=== PATIENT | female | born 1935 | race Caucasian/White ===

== ENCOUNTER → 2019-07-15 08:20 | Outpatient (REF) | payer MEDICARE, BC, SELFPAY | LOC: ANHLAB 08:20 | PROVIDERS: PCP Physician Assistant; Visit Provider Nurse Practitioner Family | DX: C44.319 Basal cell carcinoma of skin of other parts of face (principal) | CPT/HCPCS: 88305; 88331 ==

== ENCOUNTER 2020-08-15 09:42 | Emergency (ER) | payer MEDICARE, BC, SELFPAY ==
--- NOTE | ~2020-08-15 | XR_ITS ---
EXAMINATION: XR hand LT min 3V DATE: 08/15/2020 12:13 INDICATION: Left hand pain post fall TECHNIQUE: Posteroanterior, oblique and lateral views of the left hand were obtained. COMPARISON: None. FINDINGS: Diffuse osteopenia. Alignment is normal. No fracture. Mild to moderate polyarticular osteoarthritis w ith typical distribution most prominent at the radial aspect of the carpus and at multiple interphala ngeal joints with distal predominance. Lucencies with thin sclerotic margins at the tip of the ulnar styloid process, at the dorsal base of the first metacarpal and at the proximal pole of the scaphoid most likely representing degenerative cystic change with differential including chronic erosions. Mil d soft tissue swelling over the dorsal aspect of the heads of the metacarpals. IMPRESSION: 1. 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 No acute osseous abnormality. Reviewed, dictated and finalized at location B. STRIAL ECOLOGIST IMPRESSION: 1. 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 No acute oss eous abnormality.
--- NOTE | ~2020-08-15 | XR_ITS ---
EXAMINATION: XR hand RT min 3V EXAM DATE: 08/15/2020 12:14 INDICATION: Initial encounter following injury, with pain of the right hand. TECHNIQUE: Right hand frontal, lateral and oblique projections obtained and reviewed. There is no pr ior study for comparison. FINDINGS: Right metacarpal bones are unremarkable. There is mild to moderate polyarticular primary o steoarthritis. There are no acute fractures or dislocations identified. There is no subcutaneous gas . There is soft tissue swelling over the wrist dorsally. There are no radiopaque foreign bodies. IMPRESSION: 1. XR hand RT min 3V exam without acute osseous findings. 2. Soft tissue swelling. Reviewed, dictated and finalized at location A. LINING MACHINE OPERATOR
--- NOTE | ~2020-08-15 | CT_ITS ---
EXAMINATION: CT brain wo con, CT facial bones wo con EXAM DATE: 08/15/2020 12:17 INDICATION: Head injury. Fall, left facial pain. TECHNIQUE: Spiral CT of the head was performed without contrast. Axial, coronal and sagittal images were reviewed. Spiral CT of the facial bones was performed without contrast. Axial images were revie wed. Coronal and sagittal reformatted images were also reviewed. The dose-length product (DLP) for this examination was 529.67 (accession [id number]), 259.83 (accession [id number]) mGy-cm. Th e exposure was tailored according to patient size, and iterative reconstruction (ASIR) was used as ad ditional dose reduction technique. Comparison is made to prior examination from 01/16/2017. FINDINGS: HEAD CT: There is no acute intraparenchymal hemorrhage. No evidence of intraparenchymal brain mass lesion. No evidence of acute infarction. There is mild microangiopathy and moderate cerebral atroph y. There is no mass effect or midline shift. There is no obstructive hydrocephalus suspected. There are no extra-axial collections. There are no calvarial acute fractures. FACIAL CT: There are no displaced acute nasal bone fractures. The mandible, sinuses and orbits are i ntact. The orbits, globes and extraocular muscles are unremarkable. There is left periorbital swe lling, laceration. The visualized sinuses and mastoid air cells are well aerated. Advanced upper cer vical arthropathy. Left frontal bone island. IMPRESSION: 1. No acute intracranial findings. 2. No acute facial fracture. 3. Left periorbital laceration, swelling. Reviewed, dictated and finalized at location A. HEN FOOD ASSEMBLER IMPRESSION: 1. No acute intracranial findings. 2. No acute facial fracture. 3. Left periorbital laceration, swelling.
--- NOTE | ~2020-08-15 | XR_ITS ---
EXAMINATION: [id number]_[id number] DATE: 08/15/2020 12:14 INDICATION: Left rib pain post fall TECHNIQUE: PA view of the chest and 3 views of the left ribs were obtained. COMPARISON: None FINDINGS: No rib fractures identified. Linear opacity at the junction of the left mid to lower lung zone and mi ld streaky opacities at the bilateral lung bases with appearance favoring atelectasis over pneumonia. No pulmonary edema, pleural effusion or pneumothorax. Heart size is normal. Mild thoracolumbar dextr oscoliosis. Moderate thoracic and moderate to severe lumbar and lower cervical spondylosis. IMPRESSION: 1. No rib fractures identified. 2. Mild atelectasis versus less likely pneumonia at the bilateral lower lung zones. Reviewed, dictated and finalized at location B. INSPECTOR AND CENTER MARKER IMPRESSION: 1. No rib fractures identified. 2. Mild atelectasis versus less likely pneumonia at the bilateral lower lung zo karla.
[2020-08-15 10:09] VITALS: BP 143/71; PULSE 54; RESP 18; TEMP 36.3; O2SAT 99
--- NOTE | 2020-08-15 11:26 | ECG_ITS ---
Measurements Intervals [place] Rate: 45 P: 33 ME: 131 QRS: -10 QRSD: 97 T: 31 QT: 449 QTc: 390 Interpretive Statements SINUS BRADYCARDIA VOLTAGE CRITERIA FOR LVH ABNORMAL ECG Electronically Signed On 08-15-2020 13:02:20 [employer] by Jeff Nova D.O.
--- NOTE | 2020-08-15 11:38 | ED.HEATRA ---
HPI - Head Injury General Chief complaint: Head Injury Stated complaint: fall, left eyebrow laceration Time Seen by Provider: 08/15/20 11:18 Source: patient Mode of arrival: ambulatory Limitations: no limitations History of Present Illness HPI Narrative: This is an 84 year old female with history of hypertension who presents for evaluation of a head injury. She states she was in [place] when she tripped while taking out the trash. She fell and hit her head on concrete. She denies LOC. She does have a laceration over her left eye brow. She denies dizziness, headache, nausea, vomiting, or blurred vision. She is not on chronic anticoagulation but she took 2 aspirin after she fell. She denies neck pain or extremit She does note abrasion to her left hand and left knee. She states she has been able to ambulate without difficulty. She denies rib pain. . Related Data Home Medications Medication Instructions Recorded Confirmed hydrochlorothiazide 12.5 mg tablet 12.5 mg PO tablet 07/15/19 losartan 50 mg tablet 50 mg PO tablet 07/15/19 Allergies Allergy/AdvReac Type Severity Reaction Status Date / Time No Known Drug Allergies Allergy Verified 08/15/20 11:31 Review of Systems Review of Systems: All systems reviewed & are unremarkable except as noted in HPI and below PMFSH Past Medical History Medical History Hypertension Family History Family History Other Acute myocardial infarction Cerebrovascular accident Family history of malignant neoplasm Social History Social History Gender identity (if verbalized by the patient): Female Exam Const: General: no acute distress and alert Orientation/consciousness: patient oriented x3 HENMT: Ears: TM's normal bilaterally Other: left forehead superficial 2 cm laceration with surround abrasion. Eyes: Conjunctivae: conjunctivae normal Pupils: Equal, round and reactive pupils present EOM: EOMs intact bilaterally Other: left periorbital ecchymosis Chest: Chest palpation & inspection: normal inspection of the chest Resp: Effort & Inspection: normal respiratory effort and no retractions Auscultation: clear to auscultation bilaterally Cardio: Rate: regular rate Rhythm: regular rhythm Heart sounds: no murmurs GI: GI Palp: Yes Soft to palpation, No Tenderness to palpation present (GI) and No Guarding due to palpation present (GI) Auscultation: normal bowel sounds Skin: Other: abrasion to left anterior knee, no swelling or deformity, Neuro: General: patient oriented x3 and moves all extremities Cranial nerves: Yes CN's II-XII intact bilaterally Psych: Mental Status: mental status grossly normal Affect: normal affect Course Reevaluation(s) Reevaluation #1: I discussed with patient that no acute injury were found. She denies any questions or concernes. Date: 08/15/20 Time: 13:40 Vital Signs Vital signs: Vital Signs Temperature 97.4 F L 08/15/20 10:09 Pulse Rate 54 L 08/15/20 10:09 Respiratory Rate 18 08/15/20 10:09 Blood Pressure 143/71 H 08/15/20 10:09 Pulse Oximetry 99 08/15/20 10:09 Temperature 97.4 F L 08/15/20 10:09 Pulse Rate 56 L 08/15/20 13:55 Respiratory Rate 18 08/15/20 13:55 Blood Pressure 191/63 H 08/15/20 13:55 Pulse Oximetry 99 08/15/20 13:55 Procedures Laceration Laceration 1: Date: 08/15/20 Time: 13:39 Site: face Side (If applicable): left (forehead) Size (cm): 2 Depth: simple, single layer Local Anesthetic: lidocaine 1% Amount of anesthesia used (mL): 2 Pre-repair: wound explored ====== Skin Level ====== Skin layer closed with: other (fast absorbing gut) Size (cm): 5-0 Number of sutures: 5 Technique: simple, interrupted =
[2020-08-15] MEDS: TETANUS,DIPHTHERIA,AC PERTUSSIS ADULT (0.5 ML) BOOSTRIX IM (12:27)
[2020-08-15] MEDS: ACETAMINOPHEN 500 MG TABLET 1000 MG PO (13:10)
[2020-08-15 13:55] VITALS: BP 191/63; PULSE 56; RESP 18; O2SAT 99
== END 2020-08-15 13:55 | disposition home or self-care (01) ==
PROVIDERS: Emergency Provider General Practice; PCP Physician Assistant
DX: S01.81XA Laceration without foreign body of other part of head, initial encounter (principal); S60.419A Abrasion of unspecified finger, initial encounter; S80.212A Abrasion, left knee, initial encounter; S09.90XA Unspecified injury of head, initial encounter; R00.1 Bradycardia, unspecified; I10 Essential (primary) hypertension; Z23 Encounter for immunization; R94.31 Abnormal electrocardiogram [ECG] [EKG]; M19.042 Primary osteoarthritis, left hand; R91.8 Other nonspecific abnormal finding of lung field; W01.0XXA Fall on same level from slipping, tripping and stumbling without subsequent striking against object, initial encounter
CPT/HCPCS: 12011; 70450; 70486; 71101; 73130; 90471; 90715; 93005; 99284; A9270

== ENCOUNTER 2023-03-06 12:20 | Emergency (ER) | payer MEDICARE, BC, SELFPAY ==
[2023-03-06] VITALS (7 sets, daily range): BP systolic 186–219; BP diastolic 52–68; PULSE 54–65; RESP 14–18; TEMP 36.4–36.8; O2SAT 96–100
--- NOTE | ~2023-03-06 | US_ITS ---
EXAMINATION: US venous doppler UE RT DATE: 03/06/2023 14:37 INDICATION: Right upper extremity pain and swelling TECHNIQUE: Grayscale ultrasound images without and with compression and Doppler ultrasound images of the right upper extremity veins were obtained. COMPARISON: None. FINDINGS: The right internal jugular vein, subclavian vein, axillary vein, brachial veins, basilic vein, cephal ic vein, radial vein, and ulnar vein are patent. IMPRESSION: 1. No evidence of deep venous thrombosis. Reviewed, dictated and finalized at location B.
--- NOTE | ~2023-03-06 | XR_ITS ---
EXAMINATION: XR wrist RT 2V, XR hand RT min 3V DATE: 03/06/2023 14:31 INDICATION: Right hand and wrist swelling and pain TECHNIQUE: 1. Posteroanterior and lateral views of the right wrist were obtained. 2. Dorsal palmar, oblique and lateral views of the right hand were obtained. COMPARISON: Right hand radiographs dated 08/15/2020 FINDINGS: Alignment of the right hand and wrist is normal. No fracture identified. Polyarticular osteoarthriti s, moderate severity at the right first carpometacarpal, first interphalangeal and second, fourth and fifth distal interphalangeal joints and mild at the wrist, triscaphe, first second fourth metacarpop halangeal and remaining interphalangeal joints. Mild soft tissue swelling at the base of the thumb an d volar aspect of the wrist and carpus. IMPRESSION: 1. Unchanged mild to moderate polyarticular osteoarthritis at the right hand and wrist. No acute osse ous abnormality. Reviewed, dictated and finalized at location A. IMPRESSION: 1. Unchanged mild to moderate polyarticular osteoarthritis at the right hand an d wrist. No acute osseous abnormality.
--- NOTE | ~2023-03-06 | XR_ITS ---
EXAMINATION: XR humerus RT DATE: 03/06/2023 14:31 INDICATION: Right upper arm pain and swelling TECHNIQUE: AP and lateral views of the right humerus were obtained. COMPARISON: Chest radiograph dated 08/15/2020 FINDINGS: Alignment is normal. No fracture. Polyarticular osteoarthritis, mild at the right elbow, moderate se verity at the right acromioclavicular joint and also involving the right glenohumeral and which is no t sufficiently profiled to assess for severity. Chronic narrowing of the subacromial space which coul d be seen in setting of a rotator cuff tear. Soft tissues are unremarkable. Mild reticular pattern a t the right lung base which could represent atelectasis, mild pulmonary edema or less likely pneumoni a. IMPRESSION: 1. 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 No acute osseous abnormality. 2. Mild reticular pattern at the right lung base which could represent atelectasis, mild pulmonary ed yaneth or pneumonia. Reviewed, dictated and finalized at location A. IMPRESSION: 1. 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 No acute osseo us abnormality. 2. Mild reticular pattern at the right lung base which could represent atelecta sis, mild pulmonary edema or pneumonia.
[2023-03-06] MEDS: MORPHINE SULFATE (*CRX) 4 MG/ML INJ IV PUSH (14:06)
--- NOTE | 2023-03-06 14:12 | ED.GENADULT ---
HPI - General Adult General Chief complaint: Extremity Problem,Nontraumatic Stated complaint: right arm pain Time Seen by Provider: 03/06/23 12:53 History of Present Illness HPI narrative: Cadence Womack is an 87 y/o female who presents with pain to her right mid humerus down to her wrist that started last night at 2100, she went to bed and states the pain kept her up last night. She denies any trauma/ fall/ injury / rash. She states the pain feels unbearable and moving it doesn't seem to make the pain better or worse, the pain is just constant and more to the back of her arm. Related Data Allergies Allergy/AdvReac Type Severity Reaction Status Date / Time No Known Drug Allergies Allergy Other Verified 03/06/23 12:29 Review of Systems Review of Systems: CONSTITUTIONAL: Denies fever, chills, or sweats. EYES: Denies visual changes, redness, or discharge. ENT: Denies rhinorrhea, congestion, sore throat, or otalgia. CARDIOVASCULAR: Denies chest pain, palpitations, or edema. RESPIRATORY: Denies cough or dyspnea. GASTROINTESTINAL: Denies abdominal pain, nausea, vomiting, or diarrhea. GENITOURINARY: Denies dysuria or hematuria. SKIN: Denies rash or itching. MUSCULOSKELETAL: Pain to right upper arm down to her right wrist started last night at 2100 NEUROLOGIC: Denies headache, numbness, dizziness, or weakness. PSYCHIATRIC: Denies anxiety or depression. [facility] Past Medical History Medical History GERD (gastroesophageal reflux disease) Hyperlipidemia Hypertension Peptic ulcer disease Family History Family History Other Acute myocardial infarction Cerebrovascular accident Family history of malignant neoplasm Social History Social History Smoking status: Never smoker Alcohol intake: current Drinks per week: 3 Substance use: never Substance use type: does not use Lack of Transportation: No Lack of Food: Never True Current Housing: I Have Housing Concerned About Future Housing: No Difficulty Paying Gas/Electric Bills: No Difficulty Paying for Meds: No Currently Unemployed: YES Difficulty w/ Childcare or Family Care: No Living arrangements: with family Occupation/Education: retired Gender identity (if verbalized by the patient): Female Sexual Orientation (if Verbalized by the Patient): Straight or Heterosexual Spiritual care concerns: No Exam Narrative: GENERAL: Well-appearing, well-nourished, and in no acute distress. HEAD: Normocephalic, atraumatic. EYES: PERRLA and EOMI. ENT: Nares clear, no rhinorrhea or epistaxis. Mucous membranes moist. Oropharynx without tonsillar hypertrophy exudate or other lesions. Bilateral TMs pearly walker nonbulging NECK: Supple. No adenopathy or masses. No carotid bruits or JVD CHEST: Clear to auscultation. No respiratory distress. No wheezes rales or rhonchi HEART: Regular rate and rhythm. No murmur heard. Normal peripheral pulses. ABDOMEN: Soft, nontender, nondistended, normal active bowel sounds. EXTREMITIES: ROM intact, distal pulses present, no obvious deformity/ erythema / ecchymosis noted on exam . SKIN: Warm, dry, no rash. NEURO: No focal deficits. Alert and oriented x3. PSYCH: Normal mood and affect. Course Vital Signs Vital signs: Vital Signs Temperature 36.8 C 03/06/23 12:26 Pulse Rate 65 03/06/23 12:26 Respiratory Rate 16 03/06/23 12:26 Blood Pressure 204/68 H 03/06/23 12:26 Pulse Oximetry 96 03/06/23 12:26 Temperature 36.6 C 03/06/23 12:43 Pulse Rate 60 03/06/23 12:43 Respiratory Rate 18 03/06/23 12:43 Blood Pressure 193/52 H 03/06/23 12:43 Pulse Oximetry 97 03/06/23 12:43 Medical Decision Making [facility] Narrative Medical decision making narrative: On exam pt is upset about this extreme pain to the back of her right arm that mo
[2023-03-06] MEDS: LIDOCAINE 5% PATCH 1 PATCH TRANSDERM (15:37)
--- NOTE | 2023-03-06 15:42 | PC.NURSE ---
DYNAMOTOR REPAIRER, Mireille, aware of Pts HTN. Pt to take home meds upon discharge.
== END 2023-03-06 16:00 | disposition home or self-care (01) ==
PROVIDERS: Emergency Provider Nurse Practitioner Family; PCP Physician Assistant
DX: S46.911A Strain of unspecified muscle, fascia and tendon at shoulder and upper arm level, right arm, initial encounter (principal); M19.011 Primary osteoarthritis, right shoulder; I10 Essential (primary) hypertension; E78.5 Hyperlipidemia, unspecified; K21.9 Gastro-esophageal reflux disease without esophagitis; Z87.11 Personal history of peptic ulcer disease; M19.041 Primary osteoarthritis, right hand; M19.031 Primary osteoarthritis, right wrist; M19.021 Primary osteoarthritis, right elbow; R91.8 Other nonspecific abnormal finding of lung field; X58.XXXA Exposure to other specified factors, initial encounter
CPT/HCPCS: 73060; 73100; 73130; 93971; 96374; 96375; 99284; A9270; J1100; J2270

== ENCOUNTER 2023-12-11 12:42 | Emergency (ER) | payer MEDICARE, BC, SELFPAY ==
--- NOTE | ~2023-12-11 | CT_ITS ---
EXAMINATION: CT cervical spine wo con DATE: 12/11/2023 13:37 INDICATION: Head injury. TECHNIQUE: Computed tomography (CT) of the cervical spine was performed without intravenous contrast. Automated exposure control and iterative reconstruction technique were employed. The dose-length pro duct was 160.45 mGy-cm. COMPARISON: None FINDINGS: There are nodules in the thyroid measuring up to 13 mm, likely not clinically significant. There is 8 degrees levocurvature of cervical spine. There is an old compression fracture of T2. There is severely decreased disc height at C5-C6. The following disc levels are specifically discussed: C2-C3: There is mild right uncovertebral joint osteoarthritis. There is severe bilateral facet joint osteoarthritis. There is no neural foraminal stenosis. There is no central canal stenosis. C3-C4: There is mild right uncovertebral joint osteoarthritis. There is moderate right and severe lef t facet joint osteoarthritis. There is mild left neural foraminal stenosis. There is mild central can al stenosis. C4-C5: There is mild bilateral uncovertebral joint osteoarthritis. There is severe bilateral facet harvinder int osteoarthritis. There is mild right neural foraminal stenosis. There is no central canal stenosis . C5-C6: There is severe right and moderate left uncovertebral joint osteoarthritis. There is severe ri ght and moderate left facet joint osteoarthritis. There is mild bilateral neural foraminal stenosis. There is mild central canal stenosis. C6-C7: There is mild bilateral uncovertebral joint osteoarthritis. There is severe bilateral facet harvinder int osteoarthritis. There is mild bilateral neural foraminal stenosis. There is mild central canal st enosis. C7-T1: There is no uncovertebral joint osteoarthritis. There is severe bilateral facet joint osteoart hritis. There is mild bilateral neural foraminal stenosis. There is no central canal stenosis. IMPRESSION: 1. No acute fracture. 2. Severe cervical spondylosis. Reviewed, dictated and finalized at location A.
--- NOTE | ~2023-12-11 | XR_ITS ---
EXAMINATION: XR wrist LT min 3V DATE: 12/11/2023 13:13 INDICATION: Left wrist injury and pain. TECHNIQUE: 4 views of left wrist were obtained. COMPARISON: Left hand radiographs 08/15/2020 FINDINGS: Bone alignment is normal. There is a transverse fracture of distal radius with likely invol vement of the distal radioulnar joint. The distal fracture fragment demonstrates impaction. There is 4 degrees dorsal tilt of the distal articular surface. There is moderate osteoarthritis of first carp ometacarpal joint and mild osteoarthritis of first metacarpophalangeal joint. IMPRESSION: 1. Transverse fracture of distal radius. Reviewed, dictated and finalized at location A.
--- NOTE | ~2023-12-11 | CT_ITS ---
EXAMINATION: CT brain wo con DATE: 12/11/2023 13:36 INDICATION: Head injury. TECHNIQUE: Computed tomography (CT) of the head was performed without intravenous contrast. The mA wa s adjusted according to patient size. Iterative reconstruction technique was employed. The dose-lengt h product was 529.67 mGy-cm. COMPARISON: Head CT 08/15/2020 FINDINGS: There is no intracranial hemorrhage, acute infarction, or abnormal intracranial mass lesion . There are scattered areas of low attenuation in the cerebral white matter, which is within normal l imits for the patient's age. The ventricles are normal in size. There is left frontal scalp soft tiss ue swelling. The orbits are normal. There is mild mucosal thickening in the paranasal sinuses. The ma stoid air cells are normal. IMPRESSION: 1. Normal aging brain. Reviewed, dictated and finalized at location A. IMPRESSION: 1. Normal aging brain.
[2023-12-11 12:44] VITALS: BP 148/47; PULSE 63; RESP 16; TEMP 36.4; O2SAT 99
--- NOTE | 2023-12-11 14:15 | ED.FALL ---
HPI - Fall General Chief Complaint: Fall Stated Complaint: faLl, head injury Time Seen by Provider: 12/11/23 13:33 History of Present Illness HPI Narrative: Patient is an 88-year-old female who presents to the emergency department this afternoon after a fall that occurred at approximately 10:30 a.m. this morning. Patient states that she was moving a in her backyard when she accidentally tripped and fell forward landing on her left side. Patient states that she tried to brace herself with her left and she is currently complaining of left wrist pain. patient does have a hematoma to her left forehead and a skin tear to her right elbow, otherwise denies any additional pain. No additional symptoms or concerns at this time. Related Data Allergies Allergy/AdvReac Type Severity Reaction Status Date / Time No Known Drug Allergies Allergy Other Verified 12/11/23 12:48 Review of Systems Review of Systems: All systems are reviewed and are negative unless stated otherwise in the HPI. REPLACED BY [facility] Past Medical History Medical History GERD (gastroesophageal reflux disease) Hyperlipidemia Hypertension Peptic ulcer disease Family History Family History Other Acute myocardial infarction Cerebrovascular accident Family history of malignant neoplasm Social History Social History Smoking status: Never smoker Alcohol intake: current Drinks per week: 3 Substance use: never Substance use type: does not use Do You Feel Safe in your Home?: Yes Lack of Transportation: No Lack of Food: Never True Current Housing: I Have Housing Concerned About Future Housing: No Difficulty Paying Gas/Electric Bills: No Difficulty Paying for Meds: No Currently Unemployed: YES Difficulty w/ Childcare or Family Care: No Living arrangements: with family Occupation/Education: retired Gender identity (if verbalized by the patient): Female Sexual Orientation (if Verbalized by the Patient): Straight or Heterosexual Spiritual care concerns: No Exam Narrative: General: Alert, awake, afebrile, in no acute distress. HEENT: PERRL, no rhinorrhea, no post nasal drip, 3 x 3 cm hematoma to left forehead. Cardiovascular: Regular rate and rhythm, no murmurs, rubs or gallops, no peripheral edema. Respiratory: Clear to auscultation bilaterally, no tachypnea, no wheezing, no rhonchi, no rubs, no respiratory distress. Abdomen: Soft, nontender, nondistended, no rebound, no guarding, no peritoneal signs. Musculoskeletal: Swelling noted to the left wrist joint, tenderness to palpation along the distal radius, no deformity noted, intact radial and ulnar pulses, intact sensation in all nerve distributions, patient is neurovascularly intact. Skin: No rashes or petechia, no signs of infection, small right elbow skin tear. Neurological: Alert and oriented to person, place, and time. Follows all commands. No focal deficits, speech is clear and fluent. Course Vital Signs Vital signs: Vital Signs Temperature 97.6 F 12/11/23 12:44 Pulse Rate 63 12/11/23 12:44 Respiratory Rate 16 12/11/23 12:44 Blood Pressure 148/47 H 12/11/23 12:44 Pulse Oximetry 99 12/11/23 12:44 Oxygen Delivery Room Air 12/11/23 12:44 Temperature 97.6 F 12/11/23 12:44 Pulse Rate 63 12/11/23 12:44 Respiratory Rate 16 12/11/23 12:44 Blood Pressure 148/47 H 12/11/23 12:44 Pulse Oximetry 99 12/11/23 12:44 Oxygen Delivery Room Air 12/11/23 12:44 MDM - Fall MDM Narrative Medical decision making narrative: The patient was evaluated by myself in the emergency department. History is obtained from patient who is an independent historian and physical exam was performed. External medical records were reviewed at this time. IV was established and pertinent tests were ord
[2023-12-11] MEDS: HYDROcodone/acetaminophen (*CRX) 5-325 MG TABLET 1 TAB PO (14:59)
== END 2023-12-11 15:40 | disposition home or self-care (01) ==
PROVIDERS: Emergency Provider Emergency Medicine; PCP Physician Assistant
DX: S52.592A Other fractures of lower end of left radius, initial encounter for closed fracture (principal); S00.83XA Contusion of other part of head, initial encounter; I10 Essential (primary) hypertension; E78.5 Hyperlipidemia, unspecified; K21.9 Gastro-esophageal reflux disease without esophagitis; Z87.11 Personal history of peptic ulcer disease; W01.0XXA Fall on same level from slipping, tripping and stumbling without subsequent striking against object, initial encounter
CPT/HCPCS: 29125; 70450; 72125; 73110; 99284; A4565; A9270

== ENCOUNTER 2024-08-03 15:58 | Emergency (ER) | payer MEDICARE, SELFPAY ==
--- NOTE | ~2024-08-03 | CT_ITS ---
EXAMINATION: CT brain wo con DATE: 08/03/2024 21:27 INDICATION: headache, dizziness . TECHNIQUE: Computed tomography (CT) of the head was performed without intravenous contrast. The mA wa s adjusted according to patient size. Iterative reconstruction technique was employed. The dose-lengt h product was 605.33 mGy-cm. COMPARISON: 12/11/2023. FINDINGS: No acute intracranial hemorrhage or extra-axial fluid collection. No hydrocephalus, mass, or herniation. No acute ischemic infarct. Unremarkable dural venous sinus attenuation. No acute osseous abnormality. The aerated spaces are clear. Moderate atrophy and mild chronic white matter change. Atherosclerotic intracranial calcification. IMPRESSION: No acute intracranial process. Reviewed, dictated and finalized at location K. IT AND COLLECTIONS ANALYST
--- NOTE | ~2024-08-03 | CT_ITS ---
EXAMINATION: CT diagnostic chest wo con DATE: 08/03/2024 21:27 INDICATION: persistent cough, leukocytosis TECHNIQUE: Computed tomography (CT) of the chest was performed with 100 mL Omnipaque-350 intravenous contrast. Automated exposure control and iterative reconstruction technique were employed. The dose-l ength product was 177.41 mGy-cm. COMPARISON: CT abdomen 04/23/2008. FINDINGS: CHEST: Thoracic aorta: No significant dilation. Moderate atherosclerotic calcifications.. Lung parenchyma and airways: Peripheral reticular opacities and bronchiectasis, without overt honeyco mbing. Scattered calcified granulomas. Thoracic inlet, axillae and chest wall: Subcentimeter bilateral thyroid nodules which require no ad tional evaluation at this time. No axillary lymphadenopathy. Mediastinum: Enlarged mediastinal lymph nodes. Dilated central pulmonary arteries as can be seen with pulmonary arterial hypertension. Heart and pericardium: Normal heart size. No pericardial effusion. Coronary artery calcifications: Moderate. Pleura: No effusion or mass. Upper abdomen: 1 cm indeterminate density exophytic left renal lesion.. Thoracic bones: No acute osseous finding in the chest. IMPRESSION: No acute thoracic process detected. Probable UIP pattern of interstitial lung disease. Indeterminate left renal lesion, recommend nonemergent but timely CT or MRI without and with contrast for further evaluation. Reviewed, dictated and finalized at location K. SPRING ASSEMBLER IMPRESSION: No acute thoracic process detected. Probable UIP pattern of interstitial lung disease. Indeterminate left renal lesion, recommend nonemergent but timely CT or MRI wit hout and with contrast for further evaluation.
--- NOTE | ~2024-08-03 | XR_ITS ---
EXAMINATION: XR chest 2V Exam Date/Time: 08/03/2024 17:24 RESTORATIVE AIDE HISTORY: sob, uri, dizzy Comparison: None. RESULT: Lines, tubes, and devices: None. Lungs and pleura: Peripheral and basilar reticular interstitial change and scarring. Emphysematous c hange. No focal consolidation, pleural effusion, or pneumothorax. Cardiomediastinal silhouette: Stable. Other: No acute osseous or upper abdominal finding. IMPRESSION: No acute cardiopulmonary process. Reviewed, dictated and finalized at location K. ORATIVE AIDE
[2024-08-03 16:07] VITALS: BP 169/59; PULSE 59; RESP 15; TEMP 36.3; O2SAT 100
--- NOTE | 2024-08-03 17:05 | ED_ITS ---
HPI - Weakness General Chief complaint: Weakness <DEBRA Gama Last Filed: 08/03/24 17:15> Stated complaint: weakness <DEBRA Gama Last Filed: 08/03/24 17:15> Time Seen by Provider: 08/03/24 17:07 <Alysha Bojorquez PA-C - Last Filed: 08/03/24 17:15> Focused HPI: Patient is an 88-year-old female who presents the ED via EMS with report of weakness and URI symptoms. Patient reports she has been sick for the last 2 weeks with cough, congestion, rhinorrhea, intermittent fevers. has been on amoxicillin without improvement. Over the last 1 week, has been feeling increasingly short of breath, dizzy- both worse with exertion, weak, fatigued, malaise. Has also been taking meclizine without improvement. Describes dizziness as both LH and room spinning. Denies chest pain. Denies lower extremity pain or swelling. GENERAL: Elderly, mildly ill-appearing, well-nourished, and in no acute distress. HEAD: Normocephalic, atraumatic. CHEST: No respiratory distress. Rhonchi in bases bilaterally, R>L, no wheezing. Frequent coughing. HEART: Regular rate and rhythm.? NEURO: ?Alert and oriented x3. Patient screened in triage and initial orders placed.? ?Additional care and disposition to be based upon?diagnostic testing and treatment. <Alysha Bojorquez PA-C - Last Filed: 08/03/24 17:15> Source: patient <DEBRA Gama Last Filed: 08/03/24 17:15> Mode of arrival: EMS <DEBRA Gama Last Filed: 08/03/24 17:15> Limitations: no limitations <DEBRA Gama Last Filed: 08/03/24 17:15> History of Present Illness HPI Narrative: Agree with triage MSE note above. To add, patient does describe a room spinning sensation on occasion. States that this seems to be intermittent and episodic. She endorses dizziness with standing up as well. States that today she started to develop a little bit of posterior headache. <DEBRA Henry Last Filed: 08/04/24 01:46> Related Data Allergies/Adverse reactions: Allergies Allergy/AdvReac Type Severity Reaction Status Date / Time No Known Drug Allergies Allergy Other Verified 08/03/24 16:07 <DEBRA Gama Last Filed: 08/03/24 17:15> Review of Systems 2 Review of Systems: All systems as dictated in HPI <DEBRA Henry Last Filed: 08/04/24 01:46> [facility] Past Medical History Medical History: Medical History BMI 28.0-28.9,adult Peptic ulcer disease Hyperlipidemia GERD (gastroesophageal reflux disease) Hypertension <DEBRA Gama Last Filed: 08/03/24 17:15> Family History Family History: Family History Father , pancreatic cancer Heart disease Mother , Natural causes No problems noted. Sibling Heart disease Other Acute myocardial infarction Cerebrovascular accident Family history of malignant neoplasm <DEBRA Gama Last Filed: 08/03/24 17:15> Social History Social History: Social History Smoking status: Never smoker Second hand tobacco smoke exposure: No Alcohol intake: current Drinks per week: 3 Substance use: never Substance use type: does not use Do You Feel Safe in your Home?: Yes Lack of Transportation: No Lack of Food: Never True Current Housing: I Have Housing Concerned About Future Housing: No Difficulty Paying Gas/Electric Bills: No Difficulty Paying for Meds: No Currently Unemployed: No Education: High School Diploma/GED Difficulty w/ Childcare or Family Care: No Living arrangements: with family Occupation/Education: retired 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 HEAD: Normocephalic, atraumatic. EYES: PERRLA and EOMI. ENT: Left TM with serous effusion. No erythema or bulging. Right TM normal. Nares clear, no rhinorrhea or epistaxis. Mucous membranes moist. Oropharynx without tonsillar hypertrophy exudate or other lesions. NECK: Supple. No adenopathy or masses. Negative Brudzinski and Kernig sign CHEST: No respiratory distress. Mild adventitious breath sounds, worse on the right. Saturating 99% room air. HEART: Regular rate and rhythm. No murmur heard. Normal peripheral pulses. ABDOMEN: Soft, nontender, nondistended, normal active bowel sounds. MSK: Normal range of motion. No edema. SKIN: Warm, dry, no rash. NEURO: Alert and oriented x4. No focal deficits. No nystagmus. Was able to reproduce patient's dizziness with leftward rotation of the head. No dizziness with rightward rotation. No skew deviation PSYCH: Normal mood and affect. <DEBRA Henry Last Filed: 08/04/24 01:46> Course Course Emergency Course: Patient did well with ambulation test. She was able to ambulate on her own with minimal assistance which is her baseline. <DEBRA Henry Last Filed: 08/04/24 01:46> Vital Signs Vital signs: Vital Signs Temperature 97.4 F L 08/03/24 16:07 Pulse Rate 59 L 08/03/24 16:07 Respiratory Rate 15 08/03/24 16:07 Blood Pressure 169/59 H 08/03/24 16:07 Pulse Oximetry 100 08/03/24 16:07 Temperature 97.4 F L 08/03/24 16:07 Pulse Rate 73 08/03/24 22:57 Respiratory Rate 13 08/03/24 20:35 Blood Pressure 194/71 H 08/03/24 22:57 Pulse Oximetry 99 08/03/24 20:35 <DEBRA Gama Last Filed: 08/03/24 17:15> Vital Signs Temperature 97.4 F L 08/03/24 16:07 Pulse Rate 59 L 08/03/24 16:07 Respiratory Rate 15 08/03/24 16:07 Blood Pressure 169/59 H 08/03/24 16:07 Pulse Oximetry 100 08/03/24 16:07 Temperature 97.4 F L 08/03/24 16:07 Pulse Rate 73 08/03/24 22:57 Respiratory Rate 13 08/03/24 20:35 Blood Pressure 194/71 H 08/03/24 22:57 Pulse Oximetry 99 08/03/24 20:35 <Antony Cook PA-C - Last Filed: 08/04/24 01:46> MDM - Weakness MDM Narrative Medical decision making narrative: MSE by HELEN in triage. <Alysha Bojorquez PA-C - Last Filed: 08/03/24 17:15> MSE by HELEN in triage. This is a 80-year-old female who presents to the ED for chief complaint of general malaise, dizziness. Vitals show elevated blood pressure but otherwise normal. She does exhibit signs of peripheral vertigo on her physical exam. She has reproducible dizziness with leftward rotation of the head and has serous effusion to the tympanic membrane. No focal neurologic deficits on exam. Since lab work shows mildly elevated white count of 13.2. CMP unremarkable. BNP slightly elevated, however exam is not consistent with acute heart failure. Urinalysis shows 1+ leuks, 6-10 whites, however does have occasional squamous cells. Appears to be a contaminated sample. Viral swabs are negative. Chest x-ray shows no acute findings. Chest CT: IMPRESSION: No acute thoracic process detected. Probable UIP pattern of interstitial lung disease. Indeterminate left renal lesion, recommend nonemergent but timely CT or MRI without and with contrast for further evaluation. Head CT: IMPRESSION: No acute intracranial process. Patient was given fluids, Reglan, scopolamine patch, Tylenol and is feeling improved on re-evaluation. She did well with ambulating in the department. She feels ready to go home at this point. Prescription for Flonase given for sinus congestion with serous effusion on exam. Prescription for Medrol Dosepak given for likely bronchitis. Patient will be discharged in stable condition. Supportive measures discussed and return precautions given. Patient is understanding and agreeable with plan for discharge with PCP follow-up. <Antony Cook PA-C - Last Filed: 08/04/24 01:46> Lab Data Result diagrams: 08/03/24 18:17 08/03/24 18:17 <Alysha Bojorquez PA-C - Last Filed: 08/03/24 17:15> Labs: Lab Results 08/03/24 08/03/24 08/03/24 Range/Units 18:17 18:18 22:53 WBC 13.2 H (4.5-10.0) K/mm3 RBC 3.98 L (4.2-5.4) M/mm3 Hgb 12.4 (12.0-15.0) g/dL Hct 37.7 (37.0-47.0) % MCV 94.7 (80-100) fl MCH 31.2 (26-34) pg MCHC 32.9 (32-36) g/dl RDW 12.5 (11.5-14.5) % Plt Count 374 (150-375) k/mm3 MPV 8.3 (7.4-10.4) fl Immature Gran % (Auto) 0.7 H (0-0.5) % Neut % (Auto) 70.0 (45.5-73.1) % Lymph % (Auto) 17.2 L (18.3-44.2) % [place] % (Auto) 10.9 H (2.6-8.5) % Eos % (Auto) 0.9 (0-4.4) % Baso % (Auto) 0.3 (0.2-1.2) % Lymph # (Auto) 2.27 (0.9-3.2) K/mm3 [place] # (Auto) 1.4 H (0.1-0.6) K/mm3 Eos # (Auto) 0.1 (0-0.3) K/mm3 Baso # (Auto) 0.0 (0.0-0.1) K/mm3 Abs Immat Gran (auto) 0.09 H (0.00-0.031) K/mm3 Absolute Neuts (auto) 9.2 H (1.3-6.7) K/mm3 Absolute Nucleated RBC 0.000 (0.0-0.012) K/mm3 Nucleated RBC % 0.0 (0.0-0.2) % PT 13.3 (11.1-14.7) Seconds INR 1.0 APTT 26.9 (22.3-36.8) Seconds Sodium 133 L (137-145) mmol/L Potassium 4.0 (3.4-5.0) mmol/L Chloride 98 (98-107) mmol/L Carbon Dioxide 24 (22-30) mmol/L Anion Gap 11 (4-12) mmol/L BUN 18 H (7-17) mg/dL Creatinine 0.66 L (0.7-1.0) mg/dL Estim Creat Clear Calc Not Reportable Estimated GFR > 60 (59 - ) Glucose 93 (65-110) mg/dL Calcium 9.9 (8.4-10.2) mg/dL Magnesium 1.5 L (1.6-2.3) mg/dL Total Bilirubin 0.7 (0.2-1.3) mg/dL AST 17 (14-36) U/L ALT 12 (6-35) U/L Alkaline Phosphatase 93 (38-126) U/L Troponin I < 0.012 (0.000-0.034) ng/mL NT-Pro-B Natriuret Pep 938 H (19.9-100) pg/mL Total Protein 8.0 (6.3-8.2) g/dL Albumin 3.9 (3.5-5.1) g/dL Urine Color Yellow (Yellow) Urine Appearance Clear (Clear) Urine pH 6.0 (5.0-9.0) Ur Specific [place] 1.014 (1.001-1.035) Urine Protein Negative (Negative) mg/dL Urine Glucose (UA) Negative (Negative) mg/dL Urine Ketones Negative (Negative) mg/dL Ur Blood (Man) Negative (Negative) Urine Nitrate Negative (Negative) Urine Bilirubin Negative (Negative) Urine Urobilinogen 0.2 (<2.0) mg/dL Leukocyte Esterase Rfl 1+ H (Negative) PILO/UL Urine RBC 0-2 (0-2) /hpf Urine WBC 6-10 H (0-3) /hpf Ur Squamous Epith Cells Occasional (Few) /hpf Urine Bacteria None seen /hpf Urine Casts 0-2 Influenza A (RT-PCR) Negative (Negative) Influenza B (RT-PCR) Negative (Negative) RSV (RT-PCR) Negative (Negative) SARS-CoV-2 RNA (RT-PCR) Negative (Negative) <Alysha Bojorquez PA-C - Last Filed: 08/03/24 17:15> Lab Results 08/03/24 08/03/24 08/03/24 Range/Units 18:17 18:18 22:53 WBC 13.2 H (4.5-10.0) K/mm3 RBC 3.98 L (4.2-5.4) M/mm3 Hgb 12.4 (12.0-15.0) g/dL Hct 37.7 (37.0-47.0) % MCV 94.7 (80-100) fl MCH 31.2 (26-34) pg MCHC 32.9 (32-36) g/dl RDW 12.5 (11.5-14.5) % Plt Count 374 (150-375) k/mm3 MPV 8.3 (7.4-10.4) fl Immature Gran % (Auto) 0.7 H (0-0.5) % Neut % (Auto) 70.0 (45.5-73.1) % Lymph % (Auto) 17.2 L (18.3-44.2) % [place] % (Auto) 10.9 H (2.6-8.5) % Eos % (Auto) 0.9 (0-4.4) % Baso % (Auto) 0.3 (0.2-1.2) % Lymph # (Auto) 2.27 (0.9-3.2) K/mm3 [place] # (Auto) 1.4 H (0.1-0.6) K/mm3 Eos # (Auto) 0.1 (0-0.3) K/mm3 Baso # (Auto) 0.0 (0.0-0.1) K/mm3 Abs Immat Gran (auto) 0.09 H (0.00-0.031) K/mm3 Absolute Neuts (auto) 9.2 H (1.3-6.7) K/mm3 Absolute Nucleated RBC 0.000 (0.0-0.012) K/mm3 Nucleated RBC % 0.0 (0.0-0.2) % PT 13.3 (11.1-14.7) Seconds INR 1.0 APTT 26.9 (22.3-36.8) Seconds Sodium 133 L (137-145) mmol/L Potassium 4.0 (3.4-5.0) mmol/L Chloride 98 (98-107) mmol/L Carbon Dioxide 24 (22-30) mmol/L Anion Gap 11 (4-12) mmol/L BUN 18 H (7-17) mg/dL Creatinine 0.66 L (0.7-1.0) mg/dL Estim Creat Clear Calc Not Reportable Estimated GFR > 60 (59 - ) Glucose 93 (65-110) mg/dL Calcium 9.9 (8.4-10.2) mg/dL Magnesium 1.5 L (1.6-2.3) mg/dL Total Bilirubin 0.7 (0.2-1.3) mg/dL AST 17 (14-36) U/L ALT 12 (6-35) U/L Alkaline Phosphatase 93 (38-126) U/L Troponin I < 0.012 (0.000-0.034) ng/mL NT-Pro-B Natriuret Pep 938 H (19.9-100) pg/mL Total Protein 8.0 (6.3-8.2) g/dL Albumin 3.9 (3.5-5.1) g/dL Urine Color Yellow (Yellow) Urine Appearance Clear (Clear) Urine pH 6.0 (5.0-9.0) Ur Specific [place] 1.014 (1.001-1.035) Urine Protein Negative (Negative) mg/dL Urine Glucose (UA) Negative (Negative) mg/dL Urine Ketones Negative (Negative) mg/dL Ur Blood (Man) Negative (Negative) Urine Nitrate Negative (Negative) Urine Bilirubin Negative (Negative) Urine Urobilinogen 0.2 (<2.0) mg/dL Leukocyte Esterase Rfl 1+ H (Negative) PILO/UL Urine RBC 0-2 (0-2) /hpf Urine WBC 6-10 H (0-3) /hpf Ur Squamous Epith Cells Occasional (Few) /hpf Urine Bacteria None seen /hpf Urine Casts 0-2 Influenza A (RT-PCR) Negative (Negative) Influenza B (RT-PCR) Negative (Negative) RSV (RT-PCR) Negative (Negative) SARS-CoV-2 RNA (RT-PCR) Negative (Negative) <Antony Cook PA-C - Last Filed: 08/04/24 01:46> Discharge Plan Discharge Clinical Impression: Acute effusion of left ear, Dizziness, Bronchitis <DEBRA Gama Last Filed: 08/03/24 17:15> Patient Disposition: Home, Self-Care <DEBRA Gama Last Filed: 08/03/24 17:15> Condition: Stable <DEBRA Gama Last Filed: 08/03/24 17:15> Instructions: Antibiotic Form <DEBRA Gama Last Filed: 08/03/24 17:15> Additional Instructions: Exam and imaging are reassuring today. Please take Flonase to help with fluid on the ears. This is probably causing the dizziness. You could also take meclizine as needed. Use the Medrol Dosepak to help with cough and likely bronchitis. Follow-up very closely with PCP on this issue. If you have any new or worsening symptoms please return to the ER for further evaluation. <DEBRA Gama Last Filed: 08/03/24 17:15> Patient Language: Urdu <DEBRA Gama Last Filed: 08/03/24 17:15> Prescriptions: New fluticasone propionate [Flonase Allergy Relief] 50 mcg/actuation spray,suspension 1 spray intranasal Q12H Qty: 16 0RF Rx Instructions: administer into each nostril methylprednisolone [Medrol (Gustavo)] 4 mg tablets,dose pack See Rx Instructions .ROUTE .COMPLEX Qty: 21 0RF Rx Instructions: for 6 days No Action meclizine 12.5 mg tablet 12.5 mg PO TID PRN (Reason: dizziness) Qty: 30 0RF amoxicillin 875 mg tablet 875 mg PO Q12H Qty: 10 0RF losartan-hydrochlorothiazide 100-12.5 mg tablet 1 tablet PO DAILY Qty: 90 1RF omeprazole 20 mg capsule,delayed release(DR/EC) 20 mg PO DAILY Qty: 90 1RF <DEBRA Gama Last Filed: 08/03/24 17:15> Follow-up/Referrals: Asif Monteiro MD [Primary Care Provider] - <Alysha Bojorquez PA-C - Last Filed: 08/03/24 17:15> Time of Disposition: 23:59 <Alysha Bojorquez PA-C - Last Filed: 08/03/24 17:15> 23:59 <Antony Cook PA-C - Last Filed: 08/04/24 01:46>
--- NOTE | 2024-08-03 17:09 | ECG_ITS ---
Test Date: 2024-08-03 18:08:49 Measurements Intervals [place] Rate: 64 P: 31 [place]: 156 QRS: -34 QRSD: 110 T: 66 QT: 428 QTc: 443 Interpretive Statements SINUS RHYTHM LEFT AXIS DEVIATION = INCOMPLETE RIGHT BUNDLE BRANCH BLOCK LEFT VENTRICULAR HYPERTROPHY WITH ST-T CHANGE MINIMAL Q WAVES- HIGH LATERAL LEADS CANNOT R/O SEPTAL INFARCT, AGE INDETERMINATE BASELINE ARTIFACT- I, II, III, AVR, AVL, AVF ABNORMAL ECG No previous ECG available for comparison Electronically Signed On 08-03-2024 19:11:47 [facility] [place] by Jeff Nova D.O.
--- OUTSIDE RECORDS SUMMARY | 2024-08-03 18:18 | XMS_ITS | Clinical Summary ---
Author Organization [facility] [address] Address [address] [place] [address] Care Team Providers Care Photo Studio Assistant Name Role Phone Sari Coffey Primary Care Provider [phone] Allergies No known active allergies Medications omeprazole (PriLOSEC) 20 mg capsule Take 1 capsule (20 mg total) by mouth daily Active losartan (COZAAR) 100 mg tablet Take 1 tablet (100 mg total) by mouth daily Active aspirin 81 mg enteric coated tablet TAKE 1 TABLET BY MOUTH EVERY DAY 30 tablet 11 02/07/2022 Active Active Problems No known active problems Medical History Medical History Date Comments Hypertension Acid indigestion Diverticulitis Hernia, epigastric Stroke (HCC) Family History Medical History Relation Name Comments Heart attack Father Pancreatic cancer Father Stroke Mother Relation Name Status Comments Father (Age 70) Mother (Age 87) Social History Tobacco Use Types Packs/Day Years Used Date Smoking Tobacco: Never Smokeless Tobacco: Never Tobacco Cessation:Counseling Given: Not Answered Personal Safety Answer Date Recorded Getting School Help Needed Not on file 08/16 Comments Unknown Sex and Gender Information Value Date Recorded Sex Assigned at Not on file 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 Gender Identity Not on file Sexual Orientation Not on file Obstetrics History Last Filed Vital Signs Vital Sign Reading Time Taken Comments Blood Pressure 198/78 02/20/2023 1:57 PM CDT Pulse 57 11/28/2022 11:07 AM CDT Temperature - - Respiratory Rate - - Oxygen Saturation 96% 11/28/2022 11:07 AM CDT Inhaled Oxygen Concentration - - Weight 65.3 kg (144 lb) 11/28/2022 11:07 AM CDT Height 147.3 cm (4' 10 ) 11/28/2022 11:07 AM CDT Body Mass Index 30.1 11/28/2022 11:07 AM CDT Plan of Treatment Health Maintenance Due Date Last Done Comments Depression Screening 1935 Fall Risk Assessment 1935 Hepatitis B Screening 11/16/1953 Pneumococcal vaccine 65+ (1 of 1 - PCV) 11/16/1985 Zoster Vaccine (1 of 2) 11/16/1985 Well Visit 65+ 11/16/2000 Influenza Vaccine (#1) 2024 DTaP/Tdap/Td Vaccine (2 - Td or Tdap) 08/15/203006/2020 Insurance MEDICARE [facility] MEDICARE Care Teams Photo Studio Assistant Relationship Specialty Start Date End Date Sari Coffey PA [address] [place] [address] PCP - General Family Medicine 02/01/21
--- OUTSIDE RECORDS SUMMARY | 2024-08-03 18:18 | XMS_ITS | Clinical Summary ---
Author Organization [facility] Address [address] [place] [address] Care Team Providers Care Studio Operations Manager Name Role Phone Asif Monteiro MD Primary Care Provider [phone] Allergies No known active allergies Medications HYDROcodone-acetami nophen (NORCO) 5-325 MG tabletIndications:A cute Pain < 7 Day Supply Take 1 tablet by mouth every 6 (six) hours as needed. Indications : Acute Pain < 7 Day Supply 16 tablet Active ondansetron 4 MG disintegrating tablet Take 1 tablet (4 mg total) by mouth every 8 (eight) hours as needed for Nausea. 20 tablet 1 Active Social History Tobacco Use Types Packs/Day Years Used Date Smoking Tobacco: Never Smokeless Tobacco: Never Comments No Sex and Gender Information Value Date Recorded Sex Assigned at Not on file Legal Sex Female 1:12 PM CDT Gender Identity Not on file Sexual Orientation Not on file Last Filed Vital Signs Vital Sign Reading Time Taken Comments Blood Pressure 152/63 12/09/2020 5:30 PM CDT Pulse 64 12/09/2020 1:17 PM CDT Temperature 36.8 C (98.3 F) 12/09/2020 5:30 PM CDT Respiratory Rate 16 12/09/2020 1:17 PM CDT Oxygen Saturation 98% 12/09/2020 5:30 PM CDT Inhaled Oxygen Concentration - - Weight 65.2 kg (143 lb 11.8 oz) 12/09/2020 1:17 PM CDT Height 152.4 cm (5') 12/09/2020 1:17 PM CDT Body Mass Index 28.07 12/09/2020 1:17 PM CDT Plan of Treatment Health Maintenance Due Date Last Done Comments DTaP, Tdap and Td Vaccines ( 1 - Tdap) 11/16/1954 Zoster Vaccines (1 of 2) 11/16/1985 Annual Medicare Wellness Visit 11/16/2000 Pneumococcal Vaccine: 65+ Ye ars (1 of 1 - PCV) 11/16/2000 RSV Immunization or 60+ Years (1 - 1-dose 75+ series) 11/16/2010 COVID-19 Vaccine (1 - 2023-2 5 season) 2024 Influenza Adult (#1) 2024 Meningococcal B Vaccine Aged Out No l onger eligible based on patient's age to complete this topic Meningococcal Vaccine Aged Out No elly fadia eligible based on patient's age to complete this topic RSV Immunizations Under 20 Months Aged Out No longer eligible based on patient's age to complete this topic Insurance MEDICARE [facility] Care Teams Studio Operations Manager Relationship Specialty Start Date End Date Asif Monteiro MD [address] [place] [address] PCP - General FAMILY PRACTICE 12/09/20
--- OUTSIDE RECORDS SUMMARY | 2024-08-03 18:18 | XMS_ITS | Referral Summary ---
Author Organization [facility] [address] Address [address] [place] [address] Care Team Providers Care Collect On Delivery Clerk Name Role Phone Sari Coffey Primary Care Provider [phone] Allergies No known active allergies Medications omeprazole (PriLOSEC) 20 mg capsule Take 1 capsule (20 mg total) by mouth daily Active losartan (COZAAR) 100 mg tablet Take 1 tablet (100 mg total) by mouth daily Active aspirin 81 mg enteric coated tablet TAKE 1 TABLET BY MOUTH EVERY DAY 30 tablet 11 02/07/2022 Active Active Problems No known active problems Social History Tobacco Use Types Packs/Day Years Used Date Smoking Tobacco: Never Smokeless Tobacco: Never Tobacco Cessation:Counseling Given: Not Answered Personal Safety Answer Date Recorded Getting School Help Needed Not on file 08/16 Comments Unknown Sex and Gender Information Value Date Recorded Sex Assigned at Not on file 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
[2024-08-03 18:29] LABS: Basophils Percent Auto 0.3 % (0.2-1.2); Eosinophils Absolute Auto 0.1 K/mm3 (0-0.3); Eosinophils Percent Auto 0.9 % (0-4.4); Hematocrit 37.7 % (37.0-47.0); Hemoglobin 12.4 g/dL (12.0-15.0); Immature Granulocyte Absolute 0.09 K/mm3 (0.00-0.031); Immature Granulocyte Percent A 0.7 % (0-0.5); Lymphocytes Absolute Auto 2.27 K/mm3 (0.9-3.2); Lymphocytes Percent Auto 17.2 % (18.3-44.2); Mean Corpuscular HGB Conc 32.9 g/dl (32-36); Mean Corpuscular Hemoglobin 31.2 pg (26-34); Mean Corpuscular Volume 94.7 fl (80-100); Mean Platelet Volume 8.3 fl (7.4-10.4); Monocytes Absolute Auto 1.4 K/mm3 (0.1-0.6); Monocytes Percent Auto 10.9 % (2.6-8.5); Neutrophils Absolute Auto 9.2 K/mm3 (1.3-6.7); Platelet Count Result 374 k/mm3 (150-375); Red Blood Count 3.98 M/mm3 (4.2-5.4); Red Cell Distribution Width 12.5 % (11.5-14.5); White Blood Count 13.2 K/mm3 (4.5-10.0)
[2024-08-03 18:45] LABS: Magnesium 1.5 mg/dL (1.6-2.3)
[2024-08-03 18:56] LABS: Troponin I < 0.012 ng/mL (0.000-0.034)
[2024-08-03 19:01] LABS: Influenza A QL RT-PCR Negative (Negative); Influenza B QL RT-PCR Negative (Negative); RSV RNA, RT-PCR Negative (Negative); SARS-CoV-2 RNA PCR Negative (Negative)
[2024-08-03 19:02] LABS: Partial Thromboplastin Time 26.9 Seconds (22.3-36.8); Prothrombin Time 13.3 Seconds (11.1-14.7)
[2024-08-03 20:35] VITALS: BP 187/61; PULSE 62; PULSE 63; RESP 13; O2SAT 99
[2024-08-03 20:45] LABS: Alanine Aminotransferase 12 U/L (6-35); Albumin Level 3.9 g/dL (3.5-5.1); Alkaline Phosphatase 93 U/L (38-126); Anion Gap 11 mmol/L (4-12); Aspartate Amino Transferase 17 U/L (14-36); Bilirubin,Total 0.7 mg/dL (0.2-1.3); Blood Urea Nitrogen 18 mg/dL (7-17); Calcium 9.9 mg/dL (8.4-10.2); Carbon Dioxide 24 mmol/L (22-30); Chloride 98 mmol/L (98-107); Estimated Glomerular Filt Rate > 60; Glucose 93 mg/dL (65-110); Sodium 133 mmol/L (137-145)
[2024-08-03 20:54] LABS: NT Pro B Type Natriuretic Pept 938 pg/mL (19.9-100)
--- OUTSIDE RECORDS SUMMARY | 2024-08-03 21:20 | XMS_ITS | Clinical Summary ---
Author Organization [facility] Address [address] [place] [address] Care Team Providers Care Finance Analyst Name Role Phone Asif Monteiro MD Primary Care Provider [phone] Allergies No known active allergies Medications HYDROcodone-acetami [...] age to complete this topic Insurance MEDICARE [facility] Care Teams Finance Analyst Relationship Specialty Start Date End Date Asif Monteiro MD [address] [place] [address] PCP - General FAMILY PRACTICE 12/09/20
--- OUTSIDE RECORDS SUMMARY | 2024-08-03 21:20 | XMS_ITS | Referral Summary ---
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
--- OUTSIDE RECORDS SUMMARY | 2024-08-03 21:20 | XMS_ITS | Clinical Summary ---
Author Organization [facility] [address] Address [address] [place] [address] Care Team Providers Care Marketing Support Coordinator Name Role Phone Sari Coffey Primary Care Provider [phone] Allergies No known active allergies Medications omeprazole [...] on file Legal Sex Female 3:03 AM WELDER OXYHYDROGEN Gender Identity Not on file Sexual Orientation [...] - Td or Tdap) 08/15/203006/2020 Insurance MEDICARE [facility] MEDICARE Care Teams Marketing Support Coordinator Relationship Specialty Start Date End Date Sari Coffey PA [address] [place] [address] PCP - General Family Medicine 02/01/21
[2024-08-03] MEDS: ACETAMINOPHEN 500 MG TABLET 1000 MG PO (21:40)
[2024-08-03] MEDS: SCOPOLAMINE 1 MG PATCH 1 PATCH TRANSDERM (21:40)
[2024-08-03] MEDS: METOCLOPRAMIDE HCL INJ 10 MG/2 ML VIAL IV PUSH (21:41)
[2024-08-03] MEDS: SODIUM CHLORIDE 0.9% IV 1,000 ML 999 ML IV CONT (21:41)
--- NOTE | 2024-08-03 22:09 | PC.NURSE ---
Patient asked to provide urine sample and stated she is unable to at the moment. Pt advised that straight cath will be needed to obtain urine sample if she can not provide one on her own soon.
[2024-08-03 22:56] VITALS: BP 149/61; PULSE 74
[2024-08-03 22:57] VITALS: BP 194/71; BP 194/80; PULSE 68; PULSE 73
[2024-08-03 23:04] LABS: Add Urine Microscopic? YES; Appearance Urine Clear (Clear); Bacteria Urine None Seen /hpf; Bilirubin Urine Negative (Negative); Blood Urine Negative (Negative); Color Urine Yellow (Yellow); Glucose Urine UA Negative (Negative); Ketones Urine Negative (Negative); Leukocyte Esterase Ur 1+ LEU/UL (Negative); Nitrate Urine Negative (Negative); Non Pathogenic Casts 0-2; Protein Urine Negative (Negative); RBC Urine 0-2 /hpf (0-2); Specific Grav Ur 1.014 (1.001-1.035); Squamous Epithelial Cell Urine Occasional /hpf (Few); Urobilinogen Urine 0.2 mg/dL (<2.0)
== END 2024-08-04 01:30 | disposition home or self-care (01) ==
PROVIDERS: Physician Assistant; Emergency Provider Physician Assistant; PCP Family Medicine
DX: J40 Bronchitis, not specified as acute or chronic (principal); R42 Dizziness and giddiness; H93.8X2 Other specified disorders of left ear; Z20.822 Contact with and (suspected) exposure to COVID-19; R82.998 Other abnormal findings in urine; I10 Essential (primary) hypertension; E78.5 Hyperlipidemia, unspecified; K21.9 Gastro-esophageal reflux disease without esophagitis; Z87.11 Personal history of peptic ulcer disease
CPT/HCPCS: 36415; 70450; 71046; 71250; 80053; 81001; 83735; 83880; 84484; 85025; 85610; 85730; 87086; 87637; 93005; 96361; 96374; 99284; A9270; J2765; J7030

== ENCOUNTER 2024-08-10 13:43 | Outpatient (CLI) | payer MEDICARE, SELFPAY ==
[2024-08-10 15:10] LABS: Erythrocyte Sedimentation Rate 68 mm/hr (0-20)
--- OUTSIDE RECORDS SUMMARY | 2024-08-10 15:50 | XMS_ITS | Clinical Summary ---
Author Organization [facility] Address [address] [place] [address] Care Team Providers Care Seed Buyer Name Role Phone Asif Monteiro MD Primary Care Provider [phone] Allergies No known active allergies Medications HYDROcodone-acetami [...] age to complete this topic Insurance MEDICARE [facility] Care Teams Seed Buyer Relationship Specialty Start Date End Date Asif Monteiro MD [address] [place] [address] PCP - General FAMILY PRACTICE 12/09/20
== END 2024-08-10 13:44 | disposition home or self-care (01) ==
LOC: ANHLAB 13:44
PROVIDERS: PCP Family Medicine
DX: R53.81 Other malaise (principal)
CPT/HCPCS: 36415; 85652

== ENCOUNTER 2024-08-17 16:06 | Outpatient (CLI) | payer MEDICARE, BC, SELFPAY | END 2024-08-17 16:07 | disposition home or self-care (01) | PROVIDERS: PCP Family Medicine | DX: I63.9 Cerebral infarction, unspecified (principal) | CPT/HCPCS: 70544 ==

== ENCOUNTER 2024-08-27 06:46 | Outpatient (CLI) | payer MEDICARE, BC, SELFPAY ==
--- NOTE | ~2024-08-27 | XR_ITS ---
Clinical Indication: Cough PA and lateral views of the chest: Comparison: 08/03/2024 Findings: There is right basilar consolidation. There is mild patchy airspace disease at the left tavia g base.. Cardiomediastinal silhouette is within normal limits. Bones and soft tissues are unremarkab le. Impression: Bibasilar airspace disease, right worse than left. Correlate for pulmonary edema/atelectasis versus p neumonia. Reviewed, dictated and finalized at location M. Impression: Bibasilar airspace disease, right worse than left. Correlate for pulmonary sylvie a/atelectasis versus pneumonia.
--- NOTE | ~2024-08-27 | MR_ITS ---
MRI of the brain Clinical History: Giant cell arteritis Technique: Axial and sagittal T1-weighted images were acquired. These were followed by axial T2-weigh isabelle, diffusion weighted, gradient, and FLAIR images. Following intravenous administration of 12 cc Pr oHance gadolinium, T1-weighted fat-sat imaging was performed in the axial and coronal planes. Findings: No acute infarct, intracranial hemorrhage or mass lesion seen. There are scattered focal ar eas of hyperintense signal throughout the periventricular and FLAIR imaging, compatible with moderate chronic microvascular ischemic change. Ventricles and subarachnoid spaces are dilated. Orbits are unremarkable. There is mild bilateral maxi llary sinus disease. Remaining paranasal sinuses and mastoid air cells are clear. Major intracranial flow voids appear intact. Sagittal midline structures are intact. No abnormal postcontrast enhancement identified. IMPRESSION: Moderate chronic microvascular ischemic change and mild to moderate generalized atrophy. No acute intracranial abnormality seen. Reviewed, dictated and finalized at [facility].
--- OUTSIDE RECORDS SUMMARY | 2024-08-27 06:49 | XMS_ITS | Referral Summary ---
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
--- OUTSIDE RECORDS SUMMARY | 2024-08-27 06:49 | XMS_ITS | Clinical Summary ---
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
--- OUTSIDE RECORDS SUMMARY | 2024-08-27 06:49 | XMS_ITS | Clinical Summary ---
Author Organization [facility] Address [address] [place] [address] Care Team Providers Care Occupational Safety And Health Manager Name Role Phone Asif Monteiro MD Primary Care Provider [phone] Allergies No known active allergies Medications HYDROcodone-acetami [...] age to complete this topic Insurance MEDICARE [facility] Care Teams Occupational Safety And Health Manager Relationship Specialty Start Date End Date Asif Monteiro MD [address] [place] [address] PCP - General FAMILY PRACTICE 12/09/20
== END 2024-08-27 06:47 | disposition home or self-care (01) ==
PROVIDERS: PCP Family Medicine
DX: M31.6 Other giant cell arteritis (principal); R05.9 Cough, unspecified; R06.02 Shortness of breath
CPT/HCPCS: 70553; 71046; A9579

== ENCOUNTER 2024-10-05 07:58 | Outpatient (CLI) | payer MEDICARE, BC, SELFPAY ==
--- NOTE | ~2024-10-05 | MR_ITS ---
EXAMINATION: MR renal wo/w con DATE: 10/05/2024 09:19 INDICATION: Disorder of kidney and ureter TECHNIQUE: Magnetic resonance imaging (MRI) of the abdomen was performed without and with 15 mL Multi shant intravenous contrast. Sequences included coronal T2-weighted SS-FSE, coronal and axial FS 2D-F IESTA, axial STIR FSE, axial T2-weighted SS-FSE, axial T2-weighted FS SS-FSE, axial diffusion-weighte d SE, axial dual-echo T1-weighted FSPGR, and axial and coronal T1-weighted LAVA. Postcontrast axial T 1-weighted LAVA images were obtained in a time course. Postcontrast coronal T1-weighted LAVA images w ere obtained. COMPARISON: CT abdomen dated 04/23/[address] dated 08/03/2024 FINDINGS: Heart size is normal. No pericardial or pleural effusion. Liver, gallbladder, spleen, pancreas and bi lateral adrenal glands are normal. Simple appearing T2 hyperintense exophytic cyst at the lower pole the right kidney which without enhancement on postcontrast imaging. There are a few subcentimeter lik mahad additional T2 hyperintense cyst but which are unable to be distinguished on the post contrast ana ging likely due to combination of their small size and motion artifact on the post contrast imaging. There is intermediate T1 and T2 signal associated with the previous noted 1 cm indeterminate lesion a t the upper pole of the left kidney which appears to lack enhancement on the postcontrast imaging con sistent with a proteinaceous/hemorrhagic cyst. No pathologically enlarged abdominal lymphadenopathy. Visualized bowels are unremarkable. Thoracolumbar dextroscoliosis with severe spondylosis. T1 hyperin tense and fat saturating hemangioma at L1. IMPRESSION: 1. Left renal lesion of concern corresponds to a T1 and T2 isointense nonenhancing complex proteinace ous/hemorrhagic cyst. Reviewed, dictated and finalized at location A. IMPRESSION: 1. Left renal lesion of concern corresponds to a T1 and T2 isointense nonenhanc ing complex proteinaceous/hemorrhagic cyst.
--- OUTSIDE RECORDS SUMMARY | 2024-10-05 08:26 | XMS_ITS | Clinical Summary ---
Author Organization [facility] Address [address] [place] [address] Care Team Providers Care Best Worker Name Role Phone Asif Monteiro MD Primary Care Provider [phone] Allergies No known active allergies Medications HYDROcodone-acetami [...] Td Vaccines ( 1 - Tdap) 11/16/1954 Pneumococcal Vaccine: 50+ Ye ars (1 of 1 - PCV) 11/16/1985 Zoster Vaccines (1 of 2) 11/16/1985 Annual Medicare Wellness Visit 11/16/2000 RSV Immunization or 60+ Years (1 - 1-dose 75+ series) 11/16/2010 COVID-19 Vaccine (1 - 2023-2 5 season) 2024 Meningococcal B Vaccine Aged Out No l onger eligible based on patient's age to complete this topic Meningococcal Vaccine Aged Out No elly fadia eligible based on patient's age to complete this topic RSV Immunizations Under 20 Months Aged Out No longer eligible based on patient's age to complete this topic Insurance MEDICARE [facility] Care Teams Best Worker Relationship Specialty Start Date End Date Asif Monteiro MD [address] [place] [address] PCP - General FAMILY PRACTICE 12/09/20
--- OUTSIDE RECORDS SUMMARY | 2024-10-05 08:27 | XMS_ITS | Clinical Summary ---
Author Organization [facility] [address] Address [address] [place] [address] Care Team Providers Care Grade And Center Marker Name Role Phone Sari Coffey Primary Care Provider [phone] Eileen Montanez DPT Unavailable Allergies No known active allergies Medications omeprazole (PriLOSEC) 20 mg capsule Take 1 capsule (20 mg total) by mouth daily Active losartan (COZAAR) 100 mg tablet Take 1 tablet (100 mg total) by mouth daily Active aspirin 81 mg enteric coated tablet TAKE 1 TABLET BY MOUTH EVERY DAY 30 tablet 11 2 Active buPROPion XL (WELLBUTRIN XL) 150 mg 24 hr tablet Take 1 tablet (150 mg total) by mouth every morning 5 Active fluticasone propionate (FLONASE) 50 mcg/actuation nasal spray ADMNISTER 1 SPRAY INTO EACH NOSTRIL EVERY 12 HOURS 5 Active losartan-hydroC HLOROthiazide (HYZAAR) 100-12.5 mg per tablet Take 1 tablet by mouth daily 5 Active predniSONE (DELTASONE) 20 mg tablet TAKE 2 TABLET BY MOUTH DAILY FOR 4 WEEKS 5 Active levoFLOXacin (LEVAQUIN) 750 mg tablet Take 1 tablet (750 mg total) by mouth daily 1 tab by mouth for 10 days Active Active Problems No known active problems Encounters Date Type Department Care Team Description 09/23/2024 10:00 AM CDT Therapy [facility] [address] [place] [phone] Desiree Stephens DPT Vertigo (Primary Dx) 09/06/2024 Plan of Care Documentation [facility] [address] [place] [phone] 09/02/2024 11:00 AM CDT Therapy [facility] [address] [place] [phone] Eileen Montanez DPT Vertigo (Primary Dx) 08/28/2024 12:25 PM CDT - 08/28/2024 11:59 PM CDT Hospital Encounter [facility] [address] [place] [address] Discharge Disposition: Discharge to home or self care 08/28/2024 12:22 PM CDT - 08/28/2024 11:59 PM CDT Hospital Encounter [facility]) [address] [place] [address] Discharge Disposition: Discharge to home or self care 08/28/2024 10:30 AM CDT Office Visit [facility] Neurology [address] [place] [phone] Donnell Vicente Si, MD Vertigo (Primary Dx); 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) from Last 3 Months Medical History Medical History Date Comments Hypertension [...] on file 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 Gender Identity Not on file Sexual Orientation Not on file Obstetrics History Last Filed Vital Signs Vital Sign Reading Time Taken Comments Blood Pressure 142/70 09/23/2024 10:04 AM CDT Pulse 67 09/23/2024 10:04 AM CDT Temperature - - Respiratory Rate - - Oxygen Saturation 97% 09/23/2024 10:04 AM CDT Inhaled Oxygen Concentration - - Weight 65.3 kg (144 lb) 08/28/2024 10:11 AM CDT Height 147.3 cm (4' 9.99 ) 08/28/2024 10:11 AM C DT Body Mass Index 30.1 08/28/2024 10:11 AM CDT Plan of Treatment Health Maintenance Due Date Last Done Comments Depression Screening 1935 Fall Risk Assessment 1935 Hepatitis B Screening 11/16/1953 Pneumococcal vaccine 65+ (1 of 1 - PCV) 11/16/1985 Zoster Vaccine (1 of 2) 11/16/1985 Well Visit 65+ 11/16/2000 Influenza Vaccine (Season Ended) 2025 DTaP/Tdap/Td Vaccine (2 - Td or Tdap) 08/15/203006/2020 Procedures Procedure Name Priority Date/Time Associated Diagnosis Comments XR TRANSFER OF OUTSIDE FILMS Routine 08/28/2024 12:25 PM CDT NEURO MR OUTSIDE REFERENCE Routine 08/28/2024 12:22 PM CDT from Last 3 Months Results * XR Outside Reference (08/28/2024 12:25 PM CDT) Impressions [facility] - 08/28/2024 12:25 PM CDT These images are for Reference purposes only and have not been reviewed by [facility]. There will be no report generated by a [facility] Radiologist. Narrative RAD_PACS_[facility] - 08/28/2024 12:25 PM CDT EXAMINATION: Images For Reference Purposes Only us Donnell Vicente MD IMG XR PROCEDURES Final Result [facility] * Neuro MR Outside Reference (08/28/2024 12:22 PM CDT) Impressions [facility] - 08/28/2024 12:22 PM CDT These images are for Reference purposes only and have not been reviewed by [facility]. There will be no report generated by a [facility] Radiologist. Narrative [facility] - 08/28/2024 12:22 PM CDT EXAMINATION: Images For Reference Purposes Only us Donnell Vicente MD IMG MRI PROCEDURES Final Result [facility] from Last 3 Months Insurance MEDICARE [facility] MEDICARE MEDICARE [facility] Care Teams Grade And Center Marker Relationship Specialty Start Date End Date Sari Coffey PA [address] [place] [id number] PCP - General Family Medicine 02/01/21 Eileen Montanez DPT [address] [place] [address] Physical Therapist Physical Therapy 09/02/24
--- OUTSIDE RECORDS SUMMARY | 2024-10-05 08:27 | XMS_ITS | Referral Summary ---
Author Organization [facility] [address] Address [address] [place] [address] Care Team Providers Care Perishable Freight Inspector Name Role Phone Sari Coffey Primary Care Provider Eileen Montaenz DPT Unavailable [phone] Encounters Date Type Department Care Team Description 09/23/2024 10:00 AM CDT Therapy [facility] Physical Therapy [address] [place] [phone] Desiree Stephens DPT Vertigo (Primary Dx) 09/06/2024 Plan of Care Documentation [facility] Therapy [address] [place] [phone] 09/02/2024 11:00 AM CDT Therapy [facility] Therapy [address] [place] [phone] Eileen Montanez DPT Vertigo (Primary Dx) 08/28/2024 12:25 PM CDT - 08/28/2024 11:59 PM CDT Hospital Encounter [facility]) [address] [place] [phone] Discharge Disposition: Discharge to home or self care 08/28/2024 12:22 PM CDT - 08/28/2024 11:59 PM CDT Hospital Encounter [facility]) [address] [place] [address] Discharge Disposition: Discharge to home or self care 08/28/2024 10:30 AM CDT Office Visit [facility] Neurology [facility] [address] [place] [phone] Donnell Vicente Si, MD Vertigo (Primary Dx); 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) from Last 3 Months Allergies No known active allergies Medications omeprazole [...] on file 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 There will be no report generated by a [facility] Radiologist. Narrative RAD_PACS[facility] - 08/28/2024 12:25 PM CDT EXAMINATION: Images For Reference Purposes Only Donnell Vicente MD IMG XR PROCEDURES Final Result Performing Organization Address [facility] Co de Phone Number [facility] * Neuro MR Outside Reference (08/28/2024 12:22 PM CDT) Impressions RAD[facility]ACS[facility] - 08/28/2024 12:22 PM CDT These images are for Reference purposes only and have not been reviewed by [facility]. There will be no report generated by a [facility] Radiologist. Narrative RAD_PACS[facility] - 08/28/2024 12:22 PM CDT EXAMINATION: Images For Reference Purposes Only Donnell Vicente MD IMG MRI PROCEDURES Final Result Performing Organization Address [facility] Co de Phone Number [facility]_P[facility] from Last 3 Months Insurance MEDICARE [facility] Address: [address] [place] [address] MEDICARE MEDICARE [facility] Address: [address] [place] [address] Care Teams Perishable Freight Inspector Relationship Specialty Start Date End Date Sari Coffey PA [address] [place] [address] PCP - General Family Medicine 02/01/21 Eileen Montanez DPT [address] [place] [address] Physical Therapist Physical Therapy 09/02/24
[2024-10-05 10:36] LABS: Erythrocyte Sedimentation Rate 13 mm/hr (0-20)
== END 2024-10-05 07:59 | disposition home or self-care (01) ==
DX: N28.9 Disorder of kidney and ureter, unspecified (principal); M35.3 Polymyalgia rheumatica
CPT/HCPCS: 36415; 74183; 85652; A9579

== ENCOUNTER 2024-10-26 10:30 | Outpatient (CLI) | payer MEDICARE, BC, SELFPAY ==
--- OUTSIDE RECORDS SUMMARY | 2024-10-26 10:40 | XMS_ITS | Referral Summary ---
Author Organization [facility] [address] Address [address] [place] [address] Care Team Providers Care High Lead Yarder Name Role Phone Sari Coffey Primary Care Provider [phone] Eileen Montanez DPT Unavailable [phone] Encounters Date Type Department Care Team Description 10/06/2024 3:00 PM CDT Therapy [facility] Physical Therapy [address] [place] [phone] Eileen Montanez DPT Vertigo (Primary Dx) 09/23/2024 10:00 AM CDT Therapy [facility] Physical Therapy [address] [place] [phone] Desiree Stephens DPT Vertigo (Primary Dx) 09/06/2024 Plan of Care Documentation [facility] Physical Therapy [address] [place] [phone] 09/02/2024 11:00 AM CDT Therapy [facility] Therapy [address] [place] [phone] Eileen Montanez DPT Vertigo (Primary Dx) 08/28/2024 12:25 PM CDT - 08/28/2024 11:59 PM CDT Hospital Encounter [facility] [address] [place] [address] Discharge Disposition: Discharge to home or self care 08/28/2024 12:22 PM CDT - 08/28/2024 11:59 PM CDT Hospital Encounter [facility]) [address] [place] [address] Discharge Disposition: Discharge to home or self care 08/28/2024 10:30 AM CDT Office Visit [facility] Neurology [address] [place] [phone] Donnell Vicente Si, MD Vertigo (Primary Dx); [...] on file 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 There will be no report generated by a [facility] Radiologist. Narrative RAD_PACS_[facility] - 08/28/2024 12:25 PM CDT EXAMINATION: Images For Reference Purposes Only us Donnell Vicente MD IMG XR PROCEDURES Final Result [facility] * Neuro MR Outside Reference (08/28/2024 12:22 PM CDT) Impressions [facility] - 08/28/2024 12:22 PM CDT These images are for Reference purposes only and have not been reviewed by [facility]. There will be no report generated by a [facility] Radiologist. Narrative RAD_PACS[facility] - 08/28/2024 12:22 PM CDT EXAMINATION: Images For Reference Purposes Only us Donnell Vicente MD IMG MRI PROCEDURES Final Result [facility]_P[facility] from Last 3 Months Insurance MEDICARE [employer] MEDICARE [employer] MEDICARE [employer] Care Teams High Lead Yarder Relationship Specialty Start Date End Date Sari Coffey PA [address] [facility] [place] [place] [address] PCP - General Family Medicine 02/01/21 Eileen Montanez DPT [address] [place] [address] Physical Therapist Physical Therapy 09/02/24
--- OUTSIDE RECORDS SUMMARY | 2024-10-26 10:40 | XMS_ITS | Clinical Summary ---
Author Organization [facility] [address] Address [address] [place] [address] Care Team Providers Care Painting Manager Name Role Phone Sari Coffey Primary Care Provider [phone] Eileen Montanez DPT Unavailable Allergies No known [...] Team Description 10/06/2024 3:00 PM CDT Therapy [facility] Physical Therapy [address] [phone] Eileen Montanez DPT Vertigo (Primary Dx) 09/23/2024 10:00 AM CDT Therapy [facility] Physical Therapy [address] [place] [phone] Desiree Stephens DPT Vertigo (Primary Dx) 09/06/2024 Plan of Care Documentation [facility] Physical Therapy [address] [place] [phone] 09/02/2024 11:00 AM CDT Therapy [facility] Physical Therapy [address] [place] [phone] Eileen Montanez DPT Vertigo (Primary Dx) 08/28/2024 12:25 PM CDT - 08/28/2024 11:59 PM CDT Hospital Encounter [facility] [address] [place] [address] Discharge Disposition: Discharge to home or self care 08/28/2024 12:22 PM CDT - 08/28/2024 11:59 PM CDT Hospital Encounter [facility]) [address] [place] [address] Discharge Disposition: Discharge to home or self care 08/28/2024 10:30 AM CDT Office Visit [facility] Neurology [address] [place] [phone] Donnell Vicente Si, MD Vertigo (Primary [...] on file 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 There will be no report generated by a [facility] Radiologist. Narrative RAD_PACS_[facility] - 08/28/2024 12:25 PM CDT EXAMINATION: Images For Reference Purposes Only us Donnell Rochelle Vicente MD IMG XR PROCEDURES Final Result [facility] * Neuro MR Outside Reference (08/28/2024 12:22 PM CDT) Impressions SHERRY - 08/28/2024 12:22 PM CDT These images are for Reference purposes only and have not been reviewed by [facility] Radiology. There will be no report generated by a [facility] Radiologist. Narrative FRANSISCO_[facility] - 08/28/2024 12:22 PM CDT EXAMINATION: Images For Reference Purposes Only us Donnell Rochelle Vicente MD IMG MRI PROCEDURES Final Result Performing Organization Address City/[facility]/ZIP Co de Phone Number [facility] from Last 3 Months Insurance MEDICARE REPLACED BY [facility] MEDICARE [place] Care Teams Painting Manager Relationship Specialty Start Date End Date Sari Coffey PA [address] [place] [address] PCP - General Family Medicine 02/01/21 Eileen Montanez, ANTONELLA [address] [place] [address] Physical Therapist Physical Therapy 09/02/24
--- OUTSIDE RECORDS SUMMARY | 2024-10-26 10:40 | XMS_ITS | Clinical Summary ---
Author Organization [facility] Address [address] [place] [address] Care Team Providers Care Pig Lead Melter Helper Name Role Phone Asif Monteiro MD Primary Care Provider [phone] Allergies No known active allergies Medications HYDROcodone-acetami [...] age to complete this topic Insurance MEDICARE [facility] Care Teams Pig Lead Melter Helper Relationship Specialty Start Date End Date Asif Monteiro MD [address] [place] [address] PCP - General FAMILY PRACTICE 12/09/20
[2024-10-26 11:28] LABS: Anion Gap 5 mmol/L (4-12); Blood Urea Nitrogen 48 mg/dL (7-17); Carbon Dioxide 30 mmol/L (22-30); Chloride 99 mmol/L (98-107); Estimated Glomerular Filt Rate 51; Glucose 78 mg/dL (65-110); Magnesium 1.6 mg/dL (1.6-2.3); Potassium 3.7 mmol/L (3.4-5.0); Sodium 134 mmol/L (137-145)
[2024-10-26 11:48] LABS: Erythrocyte Sedimentation Rate 21 mm/hr (0-20)
== END 2024-10-26 10:31 | disposition home or self-care (01) ==
LOC: ANHLAB 10:32
PROVIDERS: PCP Family Medicine
DX: M79.89 Other specified soft tissue disorders (principal); I10 Essential (primary) hypertension; M35.3 Polymyalgia rheumatica
CPT/HCPCS: 36415; 80048; 83735; 85652

== ENCOUNTER 2024-11-17 12:43 | Outpatient (CLI) | payer MEDICARE, BC, SELFPAY ==
--- OUTSIDE RECORDS SUMMARY | 2024-11-17 12:41 | XMS_ITS | Clinical Summary ---
Author Organization [facility] [address] Address [address] [place] [address] Care Team Providers Care Tie Inspector Name Role Phone Eileen Montanez DPT Unavailable Gena Jimenez Primary Care Provider [phone] Allergies No known active allergies Medications omeprazole [...] Encounters Date Type Department Care Team Description 10/29/2024 1:50 PM CDT - 10/29/2024 11:59 PM CDT Hospital Encounter [facility] Cardiac Testing [address] [place] [address] Other specified symptoms and signs involving the circulatory and respiratory systems; Essential (primary) hypertension; Localized edema Discharge Disposition: Discharge to home or self care 10/06/2024 3:00 PM CDT Therapy [facility] Physical Therapy [address] [place] [phone] Eileen Montanez DPT Vertigo (Primary Dx) 09/23/2024 10:00 AM CDT Therapy [facility] Physical Therapy [address] [place] [phone] Desiree Stephens DPT Vertigo (Primary Dx) 09/06/2024 Plan of Care Documentation [facility] Physical Therapy [address] [place] [phone] 09/02/2024 11:00 AM CDT Therapy [facility] Physical Therapy [address] [place] [phone] Eileen Montanez DPT Vertigo (Primary Dx) 08/28/2024 12:25 PM CDT - 08/28/2024 11:59 PM CDT Hospital Encounter [facility]) [address] [place] [address] Discharge Disposition: Discharge to home or self care 08/28/2024 12:22 PM CDT - 08/28/2024 11:59 PM CDT Hospital Encounter [facility]) Critical access hospital[address] [place] [address] Discharge Disposition: Discharge to home or self care 08/28/2024 10:30 AM CDT Office Visit [facility] Neurology [address] [facility] [address] [place] [phone] Donnell Vicente Si, MD Vertigo (Primary Dx); [...] on file 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 Gender Identity Not on file Sexual Orientation [...] 10:11 AM CDT Height 147.3 cm (4' 9.99) 08/28/2024 10:11 AM C DT Body Mass [...] Procedure Name Priority Date/Time Associated Diagnosis Comments TRANSTHORACIC ECHO (TTE) COMPLETE W DOPPLER/CF WO CONTRAST Routine 10/29/2024 2:34 PM CDT Other specified symptoms and signs involving the circulatory and respiratory systems Essential (primary) hypertension Localized edema XR TRANSFER OF OUTSIDE FILMS Routine 08/28/2024 12:25 PM CDT NEURO MR OUTSIDE REFERENCE Routine 08/28/2024 12:22 PM CDT from Last 3 Months Results * TRANSTHORACIC ECHO (TTE) COMPLETE W DOPPLER/CF WO CONTRAST (10/29/2024 2:34 PM CDT) Estimated EF 65-70 % CONS SCIMAGE Anatomical Region Laterality Modality Ultrasound 10/29/2024 1:53 PM CDT Narrative 11/03/2024 4:08 PM CDT Transthoracic Echocardiographic Report Patient Name: CADENCE WOMACK L : 1935 (88y 11m) Gender: F Study Date: 10/29/2024 01:53:42 PM Ht(Inch): 57 Wt(Lb): 144 BSA: 1.62 Habitat Conservation Planner: CHRIS Boggs,MARGY Heart Rate: 61 BMI: 31.16 BP: 130/80 Ref Provider: PROCEDURES: INDICATIONS: Edema, R09.89 Other specified symptoms and signs involving the circulatory and respiratory systems, I10 Essential (primary) hypertension, and R60.0 Localized edema. FINDINGS: Left Ventricle: Normal left ventricular cavity size. Normal Left ventricular wall thickness. Normal left ventricular systolic function. The Ejection Fraction is visually estimated to be 65-70 %. Diastolic Function Left ventricular diastolic parameters are consistent with Grade I diastolic dysfunction (normal LA pressure). Right Ventricle: Normal right ventricular size. Normal right ventricular systolic function. Left Atrium: The left atrium is normal in size. Right Atrium: The right atrium is normal in size. Atrial Septum: No shunt by color Doppler. Mitral Valve: Normal mitral valve leaflet structure. There is trace mitral valve regurgitation. No mitral valve stenosis. Aortic Valve: Aortic valve not well visualized due to poor echo windows. Mild aortic valve regurgitation. No aortic valve stenosis. The mean transaortic gradient is 7 mmHg. The aortic valve area by the continuity equation (using Peak Brady) is 2.93 cm2. Tricuspid Valve: The tricuspid valve demonstrates normal leaflet structure. No tricuspid regurgitation seen. PASP cannot be evaluated due to lack of adequate TR jet. Pulmonic Valve: Pulmonic Valve not well visualized due to poor echo windows. No evidence of pulmonic regurgitation. Pericardium: No pericardial effusion noted. Aorta: Normal aortic root. The aortic Sinus is normal in size. IVC: IVC Not well visualized due to poor echo windows. CONCLUSIONS: 1. Technically Difficult Study. 2. Normal left ventricular systolic function. The Ejection Fraction is visually estimated to be 65-70 %. Diastolic Function Left ventricular diastolic parameters are consistent with Grade I diastolic dysfunction (normal LA pressure). 3. There is trace mitral valve regurgitation. 4. Mild aortic valve regurgitation. 5. PASP cannot be evaluated due to lack of adequate TR jet. MEASUREMENTS: 2D/MM Value Range Doppler Value Visually Estimated EF 65-70 % AV Peak Brady 1.68 m/s LA Dimension 2D 2.70 cm [ 1.90 - 4.00 ] AV Peak PG 11.29 mmHg LA Length 4C 5.56 cm AV Mean PG 7.00 mmHg AoR Diam 2D 2.60 cm [ 2.00 - 3.70 ] AV VTI 37.00 cm Ao Root Index 1.60 cm/m2 [ 1.00 - 2.00 ] LVOT Peak Brady 1.57 m/s LVOT Peak PG 9.86 mmHg LVOT Diam 2.00 cm DOMONIQUE Vmax 2.93 cm2 AI Peak Brady 4.07 m/s AI Peak PG 66.00 mmHg AI Decel [place] 1.83 m/s2 AI PHT 657.00 ms MV E Peak Brady 0.39 m/s MV A Peak Brady 0.72 m/s MV E/A 0.50 ratio MV Decel Time 243.00 msec Med E` Brady 4.79 cm/sec Lat E` Brady 6.31 cm/sec Average E/E` 7.03 RA Pressure 3.00 mmHg PV Peak Brady 0.91 m/s PV Peak PG 3.31 mmHg - ATTESTATION: I have reviewed and interpreted the pertinent images and measurements of this study. I attest to the conclusions in the final report that is provided above. DISCLAIMER: The study images and the final report will be retained in the patient chart by the [facility] for the legally required time period. This chart constitutes the legal record of any testing performed. Electronically Signed By: Srikanth Mccoy MD 11/03/2024 4:07:56 PM CDT Procedure Note Srikanth Mccoy MD - 11/03/2024 Transthoracic Echocardiographic Report Patient Name: CADENCE WOMACK L : 1935 (88y 11m) Gender: F Study Date: 10/29/2024 01:53:42 PM Ht(Inch): 57 Wt(Lb): 144 BSA: 1.62 Habitat Conservation Planner: CHRIS Boggs,RVT Heart Rate: 61 BMI: 31.16 BP: 130/80 Ref Provider: PROCEDURES: INDICATIONS: Edema, R09.89 Other specified symptoms and signs involving the circulatoryand respiratory systems, I10 Essential (primary) hypertension, and R60.0Localized edema. FINDINGS: Left Ventricle: Normal left ventricular cavity size. Normal Leftventricular wall thickness. Normal left ventricular systolic function. The EjectionFraction is visually estimated to be 65-70 %. Diastolic Function Left ventricular diastolicparameters are consistent with Grade I diastolic dysfunction (normal LA pressure). Right Ventricle: Normal right ventricular size. Normal right ventricularsystolic function. Left Atrium: The left atrium is normal in size. Right Atrium: The right atrium is normal in size. Atrial Septum: No shunt by color Doppler. Mitral Valve: Normal mitral valve leaflet structure. There is trace mitralvalve regurgitation. No mitral valve stenosis. Aortic Valve: Aortic valve not well visualized due to poor echo windows.Mild aortic valve regurgitation. No aortic valve stenosis. The mean transaorticgradient is 7 mmHg. The aortic valve area by the continuity equation (using Peak Brady) is 2.93cm2. Tricuspid Valve: The tricuspid valve demonstrates normal leafletstructure. No tricuspid regurgitation seen. PASP cannot be evaluated due to lack of adequate TRjet. Pulmonic Valve: Pulmonic Valve not well visualized due to poor echowindows. No evidence of pulmonic regurgitation. Pericardium: No pericardial effusion noted. Aorta: Normal aortic root. The aortic Sinus is normal in size. IVC: IVC Not well visualized due to poor echo windows. CONCLUSIONS: 1. Technically Difficult Study. 2. Normal left ventricular systolic function. The Ejection Fraction isvisually estimated to be 65-70 %. Diastolic Function Left ventricular diastolic parametersare consistent with Grade I diastolic dysfunction (normal LA pressure). 3. There is trace mitral valve regurgitation. 4. Mild aortic valve regurgitation. 5. PASP cannot be evaluated due to lack of adequate TR jet. MEASUREMENTS: 2D/MM Value Range DopplerValue Visually Estimated EF 65-70 % AV Peak Vel1.68 m/s LA Dimension 2D 2.70 cm [ 1.90 - 4.00 ] AV Peak PG11.29 mmHg LA Length 4C 5.56 cm AV Mean PG7.00 mmHg AoR Diam 2D 2.60 cm [ 2.00 - 3.70 ] AV VTI37.00 cm Ao Root Index 1.60 cm/m2 [ 1.00 - 2.00 ] LVOT Peak Vel1.57 m/s LVOT Peak PG 9.86 mmHg LVOT Diam 2.00 cm DOMONIQUE Vmax 2.93 cm2 AI Peak Brady 4.07 m/s AI Peak PG 66.00 mmHg AI Decel [place] 1.83 m/s2 AI PHT 657.00 ms MV E Peak Brady 0.39 m/s MV A Peak Brady 0.72 m/s MV E/A 0.50 ratio MV Decel Time 243.00 msec Med E` Brady 4.79 cm/sec Lat E` Brady 6.31 cm/sec Average E/E` 7.03 RA Pressure 3.00 mmHg PV Peak Brady 0.91 m/s PV Peak PG 3.31 mmHg - ATTESTATION: I have reviewed and interpreted the pertinent images and measurements ofthis study. I attest to the conclusions in the final report that is provided above. DISCLAIMER: The study images and the final report will be retained in the patientchart by the [facility] for the legally required time period. This chart constitutesthe legal record of any testing performed. Electronically Signed By: Srikanth Mccoy MD 11/03/2024 4:07:56 PM CDT us Gena JOSE CV ECHO PROCEDURES Final R esult * XR Outside Reference (08/28/2024 12:25 PM CDT) Impressions [facility] - 08/28/2024 12:25 PM CDT These images are for Reference purposes only and have not been reviewed by [facility] Radiology. There will be no report generated by a [facility] Radiologist. Narrative [facility] - 08/28/2024 12:25 PM CDT EXAMINATION: Images For Reference Purposes Only Donnell Vicente MD IMG XR PROCEDURES Final Result Performing Organization Address [facility] Co de Phone Number [facility] * Neuro MR Outside Reference (08/28/2024 12:22 PM CDT) Impressions [facility] - 08/28/2024 12:22 PM CDT These images are for Reference purposes only and have not been reviewed by [facility] Radiology. There will be no report generated by a [facility] Radiologist. Narrative RAD_[facility] - 08/28/2024 12:22 PM CDT EXAMINATION: Images For Reference Purposes Only Donnell Vicente MD IMG MRI PROCEDURES Final Result [facility] from Last 3 Months Insurance MEDICARE [employer] TRADITIONAL OOS MEDICARE BLUE TRADITIONAL OOS MEDICARE BLUE TRADITIONAL OOS Care Teams Tie Inspector Relationship Specialty Start Date End Date Gena Jimenez PA [address] [place] [address] PCP - General Physician Civil Service Worker 10/29/24 Eileen Montanez DPT [address] [place] [address] Physical Therapist Physical Therapy 09/02/24
--- OUTSIDE RECORDS SUMMARY | 2024-11-17 12:41 | XMS_ITS | Referral Summary ---
Author Organization [facility] [address] Address [address] [place] [address] Care Team Providers Care Locker Operator Name Role Phone Eileen Montanez DPT Unavailable Gena Jimenez Primary Care Provider [phone] Encounters Date Type Department Care Team Description 10/29/2024 1:50 PM CDT - 10/29/2024 11:59 PM CDT Hospital Encounter [facility] Cardiac Testing [facility] [place] [address] Other specified symptoms and signs involving the circulatory and respiratory systems; Essential (primary) hypertension; Localized edema Discharge Disposition: Discharge to home or self care 10/06/2024 3:00 PM CDT Therapy [facility] Physical Therapy [address] [place] [phone] Eileen Montanez DPT Vertigo (Primary Dx) 09/23/2024 10:00 AM CDT Therapy [facility] Physical Therapy [address] [place] [phone] Desiree Stephens DPT Vertigo (Primary Dx) 09/06/2024 Plan of Care Documentation [facility] Physical Therapy [address] [place] [phone] 09/02/2024 11:00 AM CDT Therapy [facility] Physical Therapy [address] [facility] [address] [place] [address] Eileen Montanez DPT Vertigo (Primary Dx) 08/28/2024 12:25 PM CDT - 08/28/2024 11:59 PM CDT Hospital Encounter [facility]) [address] [place] [address] Discharge Disposition: Discharge to home or self care 08/28/2024 12:22 PM CDT - 08/28/2024 11:59 PM CDT Hospital Encounter [facility]) [address] [place] [address] Discharge Disposition: Discharge to home or self care 08/28/2024 10:30 AM CDT Office Visit [facility] Neurology [facility] [address] [place] [address] Donnell Vicente Si, MD Vertigo (Primary [...] on file 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 Gender Identity Not on file Sexual Orientation [...] PM Ht(Inch): 57 Wt(Lb): 144 BSA: 1.62 Glue Specialty Supervisor: CHRIS Boggs RVT Heart Rate: 61 BMI: 31.16 BP: 130/80 [...] AI Peak PG 66.00 mmHg AI Decel [place] 1.83 m/s2 AI PHT 657.00 ms MV [...] 11/03/2024 Transthoracic Echocardiographic Report Patient Name: CADENCE WOMACKRhonda : 1935 (88y 11m) Gender: F Study Date: 10/29/2024 01:53:42 PM Ht(Inch): 57 Wt(Lb): 144 BSA: 1.62 Glue Specialty Supervisor: CHRIS Boggs,RVT Heart Rate: 61 BMI: 31.16 [...] AI Peak PG 66.00 mmHg AI Decel [place] 1.83 m/s2 AI PHT 657.00 ms MV [...] Srikanth Mccoy MD 11/03/2024 4:07:56 PM CDT Gena JOSE CV ECHO PROCEDURES Final R esult * XR Outside Reference (08/28/2024 12:25 PM CDT) Impressions [facility] - 08/28/2024 12:25 PM CDT These images are for Reference purposes only and have not been reviewed by [facility] Radiology. There will be no report generated by a [facility] Radiologist. Narrative RAD_PACS_[facility] - 08/28/2024 12:25 PM CDT EXAMINATION: Images For Reference Purposes Only Donnell Vicente MD IMG XR PROCEDURES Final Result Performing Organization Address [facility] Co de Phone Number [facility] * Neuro MR Outside Reference (08/28/2024 12:22 PM CDT) Impressions RAD_[facility]_[place] - 08/28/2024 12:22 PM CDT These images are for Reference purposes only and have not been reviewed by [facility] Radiology. There will be no report generated by a [facility] Radiologist. Narrative RAD_[facility] - 08/28/2024 12:22 PM CDT EXAMINATION: Images For Reference Purposes Only Donnell Vicente MD IMG MRI PROCEDURES Final Result Performing Organization Address City/[facility]/ZIP Co de Phone Number [facility] from Last 3 Months Insurance MEDICARE BLUE TRADITIONAL OOS BLUE TRADITIONAL OOS MEDICARE [facility] OOS Member Subscriber Plan / Payer (Ef fective 2024-Present) Name:Cadence Womack Relation to Subscriber:Self Name:Cadence Womack Payer ID:[id number] (NAIC) Type:[facility] Address: [id number] [place] [id number] Care Teams Locker Operator Relationship Specialty Start Date End Date Gena Jimenez PA [address] [place] [address] PCP - General Physician Stringing Machine Operator 10/29/24 Eileen Montanez DPT [address] [facility] [address] [place] [address] Physical Therapist Physical Therapy 09/02/24
[2024-11-17 13:10] LABS: Anion Gap 7 mmol/L (4-12); Blood Urea Nitrogen 61 mg/dL (7-17); Calcium 9.1 mg/dL (8.4-10.2); Carbon Dioxide 27 mmol/L (22-30); Chloride 94 mmol/L (98-107); Estimated Glomerular Filt Rate 41; Glucose 107 mg/dL (65-110); Sodium 128 mmol/L (137-145)
== END 2024-11-17 12:44 | disposition home or self-care (01) ==
PROVIDERS: PCP Family Medicine
DX: I10 Essential (primary) hypertension (principal)
CPT/HCPCS: 36415; 80048

== ENCOUNTER 2024-12-21 11:23 | Outpatient (CLI) | payer MEDICARE, BC, SELFPAY ==
--- OUTSIDE RECORDS SUMMARY | 2024-12-21 11:35 | XMS_ITS | Referral Summary ---
Author Organization [facility] [address] Address [address] [place] [address] Care Team Providers Care Shirt Line Operator Name Role Phone Eileen Montanez DPT Unavailable Gena Jimenez Primary Care Provider [phone] Encounters Date Type Department Care Team Description 11/25/2024 2:00 PM CDT Therapy [facility] Physical Therapy [address] [place] [phone] Eileen Montanez DPT Vertigo (Primary Dx) 10/29/2024 1:50 PM CDT - 10/29/2024 11:59 PM CDT Hospital Encounter [facility] Cardiac Testing [address] [place] [address] Other specified symptoms and signs involving the circulatory and respiratory systems; Essential (primary) hypertension; Localized edema Discharge Disposition: Discharge to home or self care 10/06/2024 3:00 PM CDT Therapy [facility] Physical Therapy [address] [place] [phone] Eileen Montanez DPT Vertigo (Primary Dx) 09/23/2024 10:00 AM CDT Therapy [facility] Physical Therapy [address] [place] [phone] Desiree Stephens DPT Vertigo (Primary Dx) from Last 3 Months Allergies No known [...] on file 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 Gender Identity Not on file Sexual Orientation Not on file Last Filed Vital Signs Vital Sign Reading Time Taken Comments Blood Pressure 142/58 11/25/2024 2:40 PM CDT pos t 10MWT Pulse 86 11/25/2024 2:40 PM CDT Temperature - - Respiratory Rate - - Oxygen Saturation 90% 11/25/2024 2:40 PM CDT Inhaled Oxygen Concentration - - [...] respiratory systems Essential (primary) hypertension Localized edema from Last 3 Months Results * TRANSTHORACIC ECHO (TTE) COMPLETE W DOPPLER/CF WO CONTRAST (10/29/2024 2:34 PM CDT) Estimated EF 65-70 % CONS SCIMAGE Anatomical Region Laterality Modality Ultrasound 10/29/2024 1:53 PM CDT Narrative 11/03/2024 4:08 PM CDT Transthoracic Echocardiographic Report Patient Name: WAI WOMACK L : 1935 (88y 11m) Gender: F Study Date: 10/29/2024 01:53:42 PM Ht(Inch): 57 Wt(Lb): 144 BSA: 1.62 Machine Clerical Verifier: CHRIS Boggs,T Heart Rate: 61 BMI: 31.16 BP: 130/80 [...] AI Peak PG 66.00 mmHg AI Decel [place] 1.83 m/s2 AI PHT 657.00 ms MV [...] - 11/03/2024 Transthoracic Echocardiographic Report Patient Name: WAI WOMACK L : 1935 (88y 11m) Gender: F Study Date: 10/29/2024 01:53:42 PM Ht(Inch): 57 Wt(Lb): 144 BSA: 1.62 Machine Clerical Verifier: CHRIS Boggs RVT Heart Rate: 61 BMI: [...] AI Peak PG 66.00 mmHg AI Decel [place] 1.83 m/s2 AI PHT 657.00 ms MV [...] JOSE CV ECHO PROCEDURES Final R esult from Last 3 Months [place] [address] [facility] MEDICARE [employer] TRADITIONAL OOS MEDICARE BLUE TRADITIONAL OOS Care Teams Shirt Line Operator Relationship Specialty Start Date End Date Gena Jimenez PA [address] [place] [address] PCP - General Physician Compound Specialist 10/29/24 Eileen Montanez DPT [address] [place] [address] Physical Therapist Physical Therapy 09/02/24
--- OUTSIDE RECORDS SUMMARY | 2024-12-21 11:35 | XMS_ITS | Clinical Summary ---
Author Organization [facility] [place] [address] Address [address] [place] [address] Care Team Providers Care Electro Optical Engineer Name Role Phone Eileen Montanez DPT Unavailable Gena Jimenez Primary Care Provider [phone]- [phone] Allergies No known active allergies Medications omeprazole [...] Team Description 11/25/2024 2:00 PM CDT Therapy [facility] Physical Therapy [address] [place] [phone] Eileen Montanez DPT Vertigo (Primary Dx) 10/29/2024 1:50 PM CDT - 10/29/2024 11:59 PM CDT Hospital Encounter [facility] Cardiac Testing [facility] [place] [address] Other specified symptoms and signs involving the circulatory and respiratory systems; Essential (primary) hypertension; Localized edema Discharge Disposition: Discharge to home or self care 10/06/2024 3:00 PM CDT Therapy [facility] Physical Therapy [address] [place] [phone] Eileen Montanez DPT Vertigo (Primary Dx) 09/23/2024 10:00 AM CDT Therapy [facility] Physical Therapy [address] [place] [phone] Desiree Stephens DPT Vertigo (Primary Dx) from Last 3 Months Medical History Medical [...] on file 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 Gender Identity Not on file Sexual Orientation [...] Depression Screening 1935 Fall Risk Assessment 1935 Osteoporosis Screening-Bone Density Scan 1935 Hepatitis B Screening 11/16/1953 Pneumococcal vaccine 65+ (1 of 1 - PCV) 11/16/1985 Zoster Vaccine (1 of 2) 11/16/1985 Well Visit 65+ 11/16/2000 Influenza Vaccine (#1) 2025 DTaP/Tdap/Td Vaccine (2 - Td or [...] PM Ht(Inch): 57 Wt(Lb): 144 BSA: 1.62 Internal Medicine Physician Assistant: CHRIS Boggs RVT Heart Rate: 61 BMI: [...] AI Peak PG 66.00 mmHg AI Decel [place] 1.83 m/s2 AI PHT 657.00 ms MV [...] PM Ht(Inch): 57 Wt(Lb): 144 BSA: 1.62 Internal Medicine Physician Assistant: CHRIS Boggs RVT Heart Rate: 61 BMI: [...] AI Peak PG 66.00 mmHg AI Decel [place] 1.83 m/s2 AI PHT 657.00 ms MV [...] esult from Last 3 Months Insurance MEDICARE BLUE TRADITIONAL [employer] MEDICARE [place] [employer] [place] MED[place] Care Teams Electro Optical Engineer Relationship Specialty Start Date End Date Gena Jimenez PA [address] [place] [address] PCP - General Physician [place] 10/29/24 Eileen Montanez DPT [address] [place] [address] Physical Therapist Physical Therapy 09/02/24
[2024-12-21 13:29] LABS: Anion Gap 9 mmol/L (4-12); Blood Urea Nitrogen 25 mg/dL (7-17); Calcium 9.2 mg/dL (8.4-10.2); Carbon Dioxide 25 mmol/L (22-30); Chloride 99 mmol/L (98-107); Estimated Glomerular Filt Rate 53; Glucose 92 mg/dL (65-110); Potassium 3.9 mmol/L (3.4-5.0); Sodium 133 mmol/L (137-145)
== END 2024-12-21 11:24 | disposition home or self-care (01) ==
PROVIDERS: PCP Family Medicine; Visit Provider Family Medicine
DX: I50.32 Chronic diastolic (congestive) heart failure (principal); I12.9 Hypertensive chronic kidney disease with stage 1 through stage 4 chronic kidney disease, or unspecified chronic kidney disease; N18.32 Chronic kidney disease, stage 3b; M35.3 Polymyalgia rheumatica
CPT/HCPCS: 36415; 80048; 85652

== ENCOUNTER 2025-02-01 10:34 | Outpatient (CLI) | payer MEDICARE, BC, SELFPAY ==
[2025-02-01 11:20] LABS: Hematocrit 32.1 % (37.0-47.0); Hemoglobin 10.1 g/dL (12.0-15.0); Mean Corpuscular HGB Conc 31.5 g/dl (32-36); Mean Corpuscular Hemoglobin 30.4 pg (26-34); Mean Corpuscular Volume 96.7 fl (80-100); Platelet Count Result 466 k/mm3 (150-375); Red Blood Count 3.32 M/mm3 (4.2-5.4); White Blood Count 9.6 K/mm3 (4.5-10.0)
--- OUTSIDE RECORDS SUMMARY | 2025-02-01 11:25 | XMS_ITS | Clinical Summary ---
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
[2025-02-01 11:38] LABS: Anion Gap 7 mmol/L (4-12); Blood Urea Nitrogen 14 mg/dL (7-17); Calcium 9.6 mg/dL (8.4-10.2); Carbon Dioxide 23 mmol/L (22-30); Chloride 101 mmol/L (98-107); Estimated Glomerular Filt Rate 52; Glucose 87 mg/dL (65-110); Potassium 4.1 mmol/L (3.4-5.0); Sodium 131 mmol/L (137-145)
[2025-02-01 12:08] LABS: Thyroid Stimulating Hormone Reflex 1.260 uIU/mL (0.465-4.68)
[2025-02-02 14:08] LABS: Albumin 2.8 g/dL (2.9-4.4); Alpha-1-Globulin 0.3 g/dL (0.0-0.4); Alpha-2-Globulin 0.8 g/dL (0.4-1.0); Gamma Globulin 1.0 g/dL (0.4-1.8)
[2025-02-03 15:09] LABS: Albumin, U 21.0 % (.); Alpha-1-Globulin, U 6.4 % (.); Alpha-2-Globulin, U 21.7 % (.); Beta Globulin, U 25.7 % (.); Gamma Globulin, U 25.2 % (.)
== END 2025-02-01 10:35 | disposition home or self-care (01) ==
PROVIDERS: PCP Family Medicine; Visit Provider Family Medicine
DX: I51.89 Other ill-defined heart diseases (principal); I10 Essential (primary) hypertension; M35.3 Polymyalgia rheumatica
CPT/HCPCS: 36415; 80048; 84155; 84156; 84165; 84166; 84443; 85027; 85652